=== PATIENT | female | born 1945 | race Caucasian/White ===

== ENCOUNTER → 2023-10-28 10:15 | Outpatient (BNVA) | payer MEDICARE, MEDICAID, SELFPAY | PROVIDERS: Visit Provider Clinical Nurse Specialist Psychiatric/Mental Health | DX: F41.1 Generalized anxiety disorder (principal); G47.00 Insomnia, unspecified; E03.9 Hypothyroidism, unspecified | CPT/HCPCS: 99212 ==

== ENCOUNTER 2023-10-28 10:40 | Outpatient (AMB) | payer MEDICARE, MEDICAID, SELFPAY ==
--- NOTE | 2023-10-28 10:42 | MHC.OFFVISPS ---
Intake Intake Visit Reasons: depression, Anxiety, Insomnia follow-up Senior Underwriting Assistant Required: No Medication List - Last Reconciled 10/28/23 by Tila Tamayo APRN dorzolamide-timolol 22.3-6.8 mg/mL ophthalmic (eye) levothyroxine mcg PO temazepam mg PO trazodone mg PO HPI- Psychiatric Chief Complaint: depression, Anxiety, Insomnia follow-up Intake Note: pt reports multipple stresors and worsened anxiety and insomnia. HPI Narrative: Patient reports she has multiple stressors including fears about housing. She is waiting for senior housing. She has not had as much work recently so she is struggling financially. Her [id number] has MS and the disease is progressing. Patient has been a major support to the family and spends much time with her granddaughter. Patient reports the increased uncertainty about her work and her housing is causing more anxiety worry and difficulty sleeping. She denies SI or HI we discussed coping skills including sleep hygiene. Past Psychiatric History: anxiety, sleep disruption, she is coping by , listening to classical music which she found decreases worry, especially before bedtime. No SI no HI; No reported SE from current meds. Long history of anxiety and insomnia, outpatient therapy with Pamella Jacob at [facility] for 11 years- just ended with her recently. No inpatient level of care Subjective Subjective Subjective Medication Compliance: Yes Side effects from medications: No Review of Systems Medical Review of Systems: unchanged Review of Systems Review of Systems Yes all other systems are reviewed and are negative Mental Status Exam Mental Status Exam Patient Appearance: Well Grooomed and Appropriate Patient Orientation: Person, Place, Time and Situation Level of Consciousness: Awake and Appropriate Patient Behavior: Appropriate and Anxious Mood Description: Anxious Affect Description: Appropriate Patient Cognition Impaired: No Ability to Follow Directions: Good Speech Pattern: Clear Memory Description: Intact Hallucinations: None Delusions: Not Present Thought Process: Intact Thought Content: positive for Intact Judgement: Good Judgement and Insight: insight and judgment good Assessment and Plan Assessment & Plan (1) Generalized anxiety disorder: Status: Acute Code(s): F41.1 - Generalized anxiety disorder (2) Insomnia: Status: Acute Code(s): G47.00 - Insomnia, unspecified (3) Hypothyroidism: Status: Acute Code(s): E03.9 - Hypothyroidism, unspecified Plan continue to utilize trazodone 100mg at bedtime temazepam 30mg at beditme as needed for insomnia sleep hygiene exercise socialize return in 3 months Medications: New trazodone 100 mg (2 x 50 mg) PO BEDTIME PRN 60 tabs 3RF insomnia temazepam 30 mg (2 x 15 mg) PO BEDTIME PRN 45 caps 3RF sleep Counseling and coordination of Care Pt. Self Management counseling: Exercise, Light exposure, Maintenance-social rhythm, Mindfulness, Mod caffeine/ETOH intake, Sleep hygiene and General coping skills Details-Self Mgmt counseling: reviewed strategies for sleep hygeine and stress management Medication management counseling: Effectiveness Diagnosis and Prognosis Counseling: Impact of diagnosis on life functions, Impact of family relationship and Adequacy of current interventions Details: I spent 30 minutes reviewing the record, seeing the patient and documenting in the medical record. Counseling provided to the patient/caregiver as outlined below. Addressed patient/caregiver concerns regarding current medication regime including effective adherence. Addressed patient/caregiver concerns regarding diagnosis and prognosis including accuracy of diagnosis, prognosis over time, impact of diagnosis. Addressed patient/caregiver concerns regarding impact of recent stressors. 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
== END 2023-10-28 10:46 | disposition home or self-care (01) ==
PROVIDERS: Visit Provider Clinical Nurse Specialist Psychiatric/Mental Health
DX: F41.1 Generalized anxiety disorder (principal); G47.00 Insomnia, unspecified; E03.9 Hypothyroidism, unspecified
CPT/HCPCS: 99214

== ENCOUNTER 2024-01-31 12:57 | Outpatient (AMB) | payer MEDICARE, MEDICAID, SELFPAY ==
--- NOTE | 2024-01-31 13:10 | MHC.OFFVISPS ---
Intake Intake Visit Reasons: depression Communications Technologist Required: No Allergies No Known Allergies Allergy (Verified 01/31/24 13:14) HPI- Psychiatric Chief Complaint: depression HPI Narrative: mood is good; sleep is fair; 2-3 days a week she has poor sleep despite the trazodone and temazepam; she has trouble with sleep initiation and mid waking. started meloxicam for sciatica; takes the meloxicam PRN only. felt it didn't help much. reports reaction prolia- caused skin rash; she continues to be active, walking every day; spending time with family. no SI no HI Past Psychiatric History: anxiety, sleep disruption, she is coping by , listening to classical music which she found decreases worry, especially before bedtime. No SI no HI; No reported SE from current meds. Long history of anxiety and insomnia, outpatient therapy with Pamella Jacob at [facility] for 11 years- just ended with her recently. No inpatient level of care Subjective Subjective Subjective Medication Compliance: Yes Side effects from medications: No Review of Systems Medical Review of Systems: unchanged Mental Status Exam Mental Status Exam Patient Appearance: Well Grooomed and Appropriate Patient Orientation: Person, Place, Time and Situation Level of Consciousness: Awake and Alert Patient Behavior: Appropriate and Cooperative Mood Description: Calm and Happy Affect Description: Calm and Happy Patient Cognition Impaired: No Ability to Follow Directions: Good Speech Pattern: Clear Hallucinations: None Delusions: Not Present Thought Process: Intact Thought Content: positive for Intact and positive for Goal Oriented Judgement: Fair Assessment and Plan Assessment & Plan (1) Insomnia: Status: Acute Qualifiers: Insomnia type: primary Qualified Code(s): F51.01 - Primary insomnia Code(s): G47.00 - Insomnia, unspecified (2) Generalized anxiety disorder: Status: Acute Code(s): F41.1 - Generalized anxiety disorder Plan continue temazepam continue trazodone continue sleep hygiene practices Medications: Refilled trazodone 100 mg (2 x 50 mg) PO BEDTIME PRN 60 tabs 3RF insomnia temazepam 30 mg (2 x 15 mg) PO BEDTIME PRN 45 caps 3RF sleep Counseling and coordination of Care Pt. Self Management counseling: Maintenance-social rhythm, Mod caffeine/ETOH intake and Sleep hygiene Diagnosis and Prognosis Counseling: Accuracy of diagnosis, Prognosis over time, Impact of diagnosis on life functions and Adequacy of current interventions Details: I spent 45[] minutes reviewing the record, seeing the patient and documenting in the medical record. Counseling provided to the patient/caregiver as outlined below. Addressed patient/caregiver concerns regarding current medication regime including effective adherence. Addressed patient/caregiver concerns regarding diagnosis and prognosis including accuracy of diagnosis, prognosis over time, impact of diagnosis. Addressed patient/caregiver concerns regarding impact of recent stressors. 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
== END 2024-01-31 14:27 | disposition home or self-care (01) ==
LOC: HO.HOP 12:57
PROVIDERS: PCP Student in an Organized Health Care Education/Training Program; Visit Provider Clinical Nurse Specialist Psychiatric/Mental Health
DX: F51.01 Primary insomnia (principal); F41.1 Generalized anxiety disorder
CPT/HCPCS: 90833; 99214

== ENCOUNTER → 2024-01-31 12:57 | Outpatient (BNVA) | payer MEDICARE, MEDICAID, SELFPAY | PROVIDERS: PCP Student in an Organized Health Care Education/Training Program; Visit Provider Clinical Nurse Specialist Psychiatric/Mental Health | DX: F51.01 Primary insomnia (principal); G47.00 Insomnia, unspecified; F41.1 Generalized anxiety disorder | CPT/HCPCS: 99212 ==

== ENCOUNTER 2024-05-01 13:10 | Outpatient (AMB) | payer MEDICARE, MEDICAID, SELFPAY ==
--- NOTE | 2024-05-01 13:22 | A.OFFPSYCH_ITS ---
Intake Intake Visit Reasons: Depression [employer] Team Member Required: No Allergies No Known Allergies Allergy (Verified 01/31/24 13:14) Medication List - Last Reconciled 05/01/24 by Tila Tamayo APRN dorzolamide 2% 1 drp ophthalmic (eye) BID dorzolamide-timolol 22.3-6.8 mg/mL ophthalmic (eye) levothyroxine mcg PO meloxicam mg PO temazepam 30 mg (2 x 15 mg) PO BEDTIME PRN trazodone 100 mg (2 x 50 mg) PO BEDTIME PRN HPI- Psychiatric Chief Complaint: Depression HPI Narrative: pt very anxious; sleep is terrible- sleep till 3- 430am; doesn't want to add any additional medication; she is trying to use coping strategies; she is waiting for appropriate housing that she move to; she has been on wait list for a year; she needs a place thats affordable and on one floor as she currently has to go up an down 18 stairs to use bathroom in middle of night. no sedation from medication; no dizziness. she is reading at [employer] if she can't sleep ; good social support from family Past Psychiatric History: anxiety, sleep disruption, she is coping by , listening to classical music which she found decreases worry, especially before bedtime. No SI no HI; No reported SE from current meds. Long history of anxiety and insomnia, outpatient therapy with Pamella Jacob at [facility] for 11 years- just ended with her recently. No inpatient level of care Subjective Subjective Subjective Medication Compliance: Yes Side effects from medications: No Review of Systems Medical Review of Systems: unchanged Mental Status Exam Mental Status Exam Patient Appearance: Well Grooomed and Appropriate Patient Orientation: Person, Place, Time and Situation Level of Consciousness: Awake and Appropriate Patient Behavior: Appropriate and Cooperative Mood Description: Anxious and Nervous Affect Description: Appropriate Patient Cognition Impaired: No Ability to Follow Directions: Good Speech Pattern: Clear, Appropriate and Coherent Memory Description: Intact Hallucinations: None Delusions: Not Present Thought Process: Intact and Goal Oriented Thought Content: positive for Intact and positive for Goal Oriented Judgement: Good Assessment and Plan Assessment & Plan (1) Generalized anxiety disorder: Status: Acute Code(s): F41.1 - Generalized anxiety disorder (2) Insomnia: Status: Acute Qualifiers: Insomnia type: primary Qualified Code(s): F51.01 - Primary insomnia Code(s): G47.00 - Insomnia, unspecified Plan pt continues to have mild to moderate anxiety and chronic sleep disruption; she has good coping skills; have reduced dose of temazepam last year; tolerating meds without side effects. Medications continue to be medically necessary and she is not ready for further decrease at this time Medications: Refilled temazepam 30 mg (2 x 15 mg) PO BEDTIME PRN 45 caps 3RF sleep trazodone 100 mg (2 x 50 mg) PO BEDTIME PRN 60 tabs 3RF insomnia Counseling and coordination of Care Pt. Self Management counseling: Exercise, Mindfulness, Nutrition education and improvement, Sleep hygiene and General coping skills Medication management counseling: Effectiveness, Side effects, Dosing range, Duration, Drug interaction, Adherence and Other Diagnosis and Prognosis Counseling: Accuracy of diagnosis, Prognosis over time and Adequacy of current interventions Details: I spent 45 minutes reviewing the record, seeing the patient and documenting in the medical record. Counseling provided to the patient/caregiver as outlined below. Addressed patient/caregiver concerns regarding current medication regime including effective adherence. Addressed patient/caregiver concerns regarding diagnosis and prognosis including accuracy of diagnosis, prognosis over time, impact of diagnosis. Addressed patient/caregiver concerns regarding impact of recent stressors. 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
== END 2024-05-01 13:51 | disposition home or self-care (01) ==
LOC: HO.HOP 13:10
PROVIDERS: PCP Student in an Organized Health Care Education/Training Program; Visit Provider Clinical Nurse Specialist Psychiatric/Mental Health
DX: F41.1 Generalized anxiety disorder (principal); F51.01 Primary insomnia
CPT/HCPCS: 90833; 99214

== ENCOUNTER → 2024-05-01 13:10 | Outpatient (BNVA) | payer MEDICARE, SELFPAY | PROVIDERS: PCP Student in an Organized Health Care Education/Training Program; Visit Provider Clinical Nurse Specialist Psychiatric/Mental Health | DX: F32.A Depression, unspecified (principal); F41.1 Generalized anxiety disorder; F51.01 Primary insomnia | CPT/HCPCS: 99212 ==

== ENCOUNTER 2024-07-30 13:04 | Outpatient (AMB) | payer MEDICARE, MEDICAID, SELFPAY ==
--- NOTE | 2024-07-30 13:06 | A.OFFPSYCH_ITS ---
Intake Intake Visit Reasons: Depression Vamp Liner Required: No Allergies No Known Allergies Allergy (Verified 01/31/24 13:14) Medication List - Last Reconciled 07/30/24 by Tila Tamayo APRN dorzolamide 2% 1 drp ophthalmic (eye) BID dorzolamide-timolol 22.3-6.8 mg/mL ophthalmic (eye) levothyroxine mcg PO meloxicam mg PO temazepam 15 mg PO BEDTIME PRN trazodone 100 mg (2 x 50 mg) PO BEDTIME PRN HPI- Psychiatric Chief Complaint: Depression HPI Narrative: pt reports worsening anxiety and sleep; high stress due to living situation and unable to find a new apartment; increase worry and stress with family; pt is coping well but it is effecting her sleep; she is exercising and socializing; she has supportive family. no medical changes; no SI or Hi Past Psychiatric History: anxiety, sleep disruption, she is coping by , listening to classical music which she found decreases worry, especially before bedtime. No SI no HI; No reported SE from current meds. Long history of anxiety and insomnia, outpatient therapy with Pamella Jacob at [facility] for 11 years- just ended with her recently. No inpatient level of care Subjective Subjective Subjective Medication Compliance: Yes Side effects from medications: No Review of Systems Medical Review of Systems: unchanged Mental Status Exam Mental Status Exam Patient Appearance: Well Grooomed and Appropriate Patient Orientation: Person, Place, Time and Situation Level of Consciousness: Awake and Appropriate Patient Behavior: Appropriate, Talkative, Cooperative and Good Eye Contact Mood Description: Anxious Affect Description: Anxious Patient Cognition Impaired: No Ability to Follow Directions: Good Speech Pattern: Clear and Appropriate Memory Description: Intact Hallucinations: None Delusions: Not Present Thought Process: Intact and Goal Oriented Thought Content: positive for Intact and positive for Goal Oriented Judgement: Good Assessment and Plan Assessment & Plan (1) Generalized anxiety disorder: Status: Acute Code(s): F41.1 - Generalized anxiety disorder (2) Insomnia: Status: Acute Qualifiers: Insomnia type: primary Qualified Code(s): F51.01 - Primary insomnia Code(s): G47.00 - Insomnia, unspecified Medications: Refilled temazepam 15 mg PO BEDTIME PRN 30 caps 1RF sleep trazodone 100 mg (2 x 50 mg) PO BEDTIME PRN 60 tabs 3RF insomnia Counseling and coordination of Care Pt. Self Management counseling: Mod caffeine/ETOH intake, Sleep hygiene and General coping skills Medication management counseling: Effectiveness, Side effects, Dosing range, Duration, Drug interaction and Adherence Diagnosis and Prognosis Counseling: Accuracy of diagnosis, Prognosis over time, Impact of diagnosis on life functions, Impact of family relationship, Problematic behaviors secondary to diagnosis and Adequacy of current interven tions Details: I spent 40 minutes reviewing the record, seeing the patient and documenting in the medical record. Counseling provided to the patient/caregiver as outlined below. Addressed patient/caregiver concerns regarding current medication regime including effective adherence. Addressed patient/caregiver concerns regarding diagnosis and prognosis including accuracy of diagnosis, prognosis over time, impact of diagnosis. Addressed patient/caregiver concerns regarding impact of recent stressors. 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
--- OUTSIDE RECORDS SUMMARY | 2024-08-01 15:33 | XMS_ITS ---
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 . . 2-3x/week for 3-4 weeks 05/08/2024 Active Levothyroxine Sodium 50 MCG 1 tablet in the morning on an empty stomach Orally Once a day for 30 day(s) Active Temazepam 15 MG 1 capsule at bedtime as needed Orally Once a day Active Dorzolamide HCl 2 % 1 drop into affected eye Ophthalmic Three times a day Active Calcium + D3 600 mg Active Voltaren 1 % as directed Externally 05/08/2024 Active traZODone HCl Not-Ta shira Trazamine 50 mg 1 per day Not-Taking traZODone HCl Active Prolia Not-Taking Social History Tobacco Use: Social History Observation Description Date Details (start date - stop date) Never Smoker NA - NA Tobacco Use/Smoking Question Answer Notes Are you a: nonsmoker Additional Findings: Tobacco Non-User Current no n-smoker Alcohol Screen Question Answer Notes Did you have a drink contain ing alcohol in the past year? Yes How often did you have a dri nk containing alcohol in the past year? 2 to 3 times a week (3 points) Points 3 Interpretation Positive Tobacco use other than smoking: Question Answer Notes Are you an other tobacco user? No Problems Problem Type SNOMED Code ICD Code Onset Dates Problem Status W/U Status Risk Notes Problem [id number] Arthritis of right ankle (M19.071) Active confirmed Vital Signs Height 5 ft 2 in in 05/08/2024 Weight 105 lbs 05/08/2024 BMI 19.2 kg/m2 05/08/2024 Encounters Encounter Location Date Provider Diagnosis [facility] [place] [address] [address] 05/08/2024 AnthonyDuggan Pain in right foot M79.671 ; Sprain of anterior talofibular ligament of right ankle, initial encounter S93.491A ; Arthritis of right ankle M19.071 and Ingrown nail L60.0 Assessments Encounter Date Diagnosis (ICD Code) Assessment Notes Treatment Notes Treatment Clinical Notes Section Notes 05/08/2024 Pain in right foot (ICD-10 - M79.671) 05/08/2024 Sprain of anterior talofibular ligament of right ankle, initial encounter (ICD-10 - S93.491A) 05/08/2024 Arthritis of right ankle (ICD-10 - M19.071) 05/08/2024 Ingrown nail (ICD-10 - L60.0) Plan Of Treatment Medication Medication Name Sig Start Date Stop Date Notes Physical Therapy . . . 2-3x/week for 3-4 weeks 05/08/2024 Voltaren 1 % as directed Externally 05/08/2024 Pending Test Test Name Order Date X ray : Ankle, right 3V 05/08/2024 Next Appt Details Follow Up: prn, Reason: Progress Notes * Altagracia GONZALEZeDOB:1945 (79 yo F)Acc No.[id number]:05/08/2024 Progress Note Patient:?Anna Marie Gonzalez Provider:?Anthony Aparicio DPM :1945???Age:79 Y???Sex:Female D ate:05/08/2024 Address:[address] [place] [address] [facility] Pcp:Chauncey Peters Subjective: * Chief Complaints: * ???Foot pain * HPI: ???Foot Pain:?Nature:?sharp, sudden.?Location?Outside, Rearfoot and ankle right.?Duration:?last night--prepping food in kitchen.?Onset/Cause:?unknown, denies trauma.?Course:?intermittent, worse.?Aggrevated:?any pressure, standing, walking.?Treatments:?rest, straps,wraps,pads, advil and tylenol.?Quality/Severity?10, scale 1-10 last night and currentlya? 3, scale 1-10.? * ROS:?General/Constitutional:?Nausea?denies, denies.?Vomiting?denies, denies.?Hunger Thirst?denies, denies.?Loss appetite?denies, denies.?Chills?denies, denies.?Fatigue?denies, denies.?Fever?denies, denies.?Night Sweats denies, denies.?Unexplained weight loss?denies, denies.?Unexplained weight gain?denies.?Ophthalmologic:?Blurred vision?denies.?Red eye?denies.?HEENTM:?Dentures?denies, denies.?Dizziness?denies, denies.?Glasses/contacts?admits, denies.?Retinopathy?denies, denies.?Blurred/double vision?denies, denies.?TMJ?denies, denies.?Discharge/drainage?denies, denies.?Implants?denies, denies.?Sore throat?denies.?Dental implants?denies.?Hard of hearing ?denies, denies.?Difficulty chewing/swallowing/speaking?denies, denies.?Nose bleeds?denies, denies.?Sore mouth?denies, denies.?Swollen glands?denies.?Respiratory:?On Oxygen?denies, denies.?Pneumonia/pleurisy?denies, denies.?Bronchitis?denies, denies.?Emphysema?denies, denies.?Coughing?denies, denies.?Cough blood?denies, denies.?Shortness of breath?denies, denies.?Wheezing?denies, denies.?Cardiovascular:?Pacemaker?denies, denies.?MVP?denies, denies.?WPW?denies, denies.?CHF?denies, denies.?Heart attack?denies, denies.?Septal defect?denies, denies.?Rapid beat?denies, denies.?Chest pain ?denies, denies.?Atrial Fib.?denies, denies.?Murmur/Palpitations?denies, denies.?Gastrointestinal:?Hemorrhoids?denies, denies.?Stomach/Abdominal pain?denies, denies.?Dark blood stool?denies, denies.?Irritable bowel ?denies, denies.?Constipation?denies, denies.?Diarrhea?denies, denies.?Vomiting?denies.?Hematology:?Swelling?denies, denies.?Clots?denies.?Varicose Veins?denies.?Bruising?denies, denies.?Bleeding problem?denies, denies.?Genitourinary:?Blood urine?denies, denies.?Frequent/Painfu/urination/bladder control?denies, denies.?Kidney stones?denies, denies.?Infection (UTI)?denies, denies.?Nephropathy?denies, denies.?sex trans dis (STD)?denies.?Prostate?denies.?Musculoskeletal:?Hammertoes?admits, denies.?Bunions?denies, denies.?Scoliosis/kyphosis?denies.?Back Pain?denies.?Muscle Cramps/ Resting?denies.?Muscle cramps / walking?denies, denies.?Generalized aches and pains?denies, denies.?Weakness?denies, denies.?Integ.:?Marcus?denies, denies.?Scars?denies, denies.?Corns/calluses?denies, denies.?Ingrown nails?admits, denies.?Painful nails?admits, denies.?Open Sores?denies.?Rashes?denies, denies.?Neurologic:?Difficulty sleeping?denies, denies.?Bipolar?denies.?Brain disorder?denies, denies.?Numbness?denies.?Balance trouble?denies, denies.?Confusion?denies, denies.?Fainting/blackouts?denies, denies.?Headache?denies.?Tingling?denies.?Tremors?denies, denies.? * Medical History:? * Surgical History:?right hip replacement 02/2016left hip replacement 06/2016toenail surgery 12/2018? 1955 * Hospitalization/Major Diagno stic Procedure:?No Hospitalization History. * Family History:?Mother: dece ased, diagnosed with Family history of arthritis, Other malignant neoplasm of unspecified site.?Father: , diagnosed with Unspecified heart disease.?Siblings: diagnosed with Diabetic - NIDDM.? * Social History:?Tobacco Use:?Tobacco Use/Smoking?Are you a:?nonsmoker ?Additional Findings: Tobacco Non-User?Current non-smoker ?Tobacco use other than smoking?Are you an other tobacco user??No ???Drugs/Alcohol:?Drugs?Have you used drugs other than those for medical reasons in the past 12 months??No ?Alcohol Screen?Did you have a drink containing alcohol in the past year??Yes ?How often did you have a drink containing alcohol in the past year??2 to 3 times a week (3 points) ?Points?3 ?Interpretation?Positive ???Miscellaneous:?no Caffeine. ?Children: yes, 1. ?Exercise: yes, bike riding, workouts, walking. ?Marital status: single. 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 * Medications:?TakingCalcium + D3 , Notes: 600 mgDorzolamide HCl 2 % Solution 1 drop into affected eye Ophthalmic Three times a dayLevothyroxine Sodium 50 MCG Tablet 1 tablet in the morning on an empty stomach Orally Once a dayTemazepam 15 MG Capsule 1 capsule at bedtime as needed Orally Once a daytraZODone HCl Taking Calcium + D3 , Notes: 600 mgTaking Dorzolamide HCl 2 % Solution 1 drop into affected eye Ophthalmic Three times a dayTaking Levothyroxine Sodium 50 MCG Tablet 1 tablet in the morning on an empty stomach Orally Once a dayTaking Temazepam 15 MG Capsule 1 capsule at bedtime as needed Orally Once a dayTaking traZODone HCl Not-Taking/PRNProlia traZODone HCl Trazamine , Notes: 50 mg 1 per dayMedication List reviewed and reconciled with the patientNot-Taking/PRN Prolia Not-Taking/PRN traZODone HCl Not-Taking/PRN Trazamine , Notes: 50 mg 1 per dayMedication List reviewed and reconciled with the patient * Allergies:?CephalosporinsKef denae: soumya[Allergies Verified] Objective: * Vitals:?Ht: 5 ft 2 in, Wt:10 5, BMI: 19.2, Shoe size:6.5, Wt-k.63 kg. * Examination: ???General Examination: ?GENERAL APPEARANCE:?pleasant, alert, well nourished, well developed, well hydrated, with good attention to hygene/body habitus, and in no acute distress.?ORIENTED:?person,place, and time.?Neurological: ?SENSORY:?Neurological exam is normal, pain sensation normal, vibration sensation intact, pinprick sensation is normal in the lower extremities, denies, tingling, burning, anesthesia, paresthesia, hyperesthesia, B/L, Neurological exam demonstrates pop AL right ankle and mild pop AM rt ankle.?TINEL'S COMPRESSION:?Negative tarsal tunnel, suri pedis, and medial calcaneal nerves B/L.?BABINSKI REFLEX:?absent.?Neuroma Pain: ?PALPATION:?No interspace pain noted on palpation.?Vascular: ?DP PULSES(B):?2/4, B/L.?PT PULSES(B):?2/4, B/L.?CAPILLARY FILL TIME:?3 secs. per digit, B/L.?TROPHIC CONDITION-TEXTURE/ELASTICITY/TURGOR/HAIR GROWTH(B):?normal, B/L.?TEMPERTURE GRADIENT(C):?warm to cool, proximal to distal, B/L.?PIGMENTATION:?normal, B/L.?EDEMA(C):?no edema.?TELANGECTASIA:?absent.?VARICOSITIES:?absent.?Dermatologic: ?SKIN FINDINGS:?Skin exam reveals normal texture, elasticity, and tugor. There are no masses. The interspaces are clear, B/L .?Orthopedic: ?MUSCLE STRENGTH:?5/5 all groups in a symmetrical fashion , B/L.?GAIT ABNORMALITY:?pronated, abducted, B/L.?X-Rays - IMAGING REPORT: ?Clinical Indication(s):? Evaluate Biomechanical Deformity.?Views:? 3 views of Ankle, RIGHT.?Findings:? moderate generalized decrease in bone density, asymmetrical Ankle joint space narrowing, lateral gutter, anteriorly.?Digits:? show asymmetrical joint space narrowing at the PIPJ consistent with clinical finding of hammertoe deformity, show enlarged/hypertrophied phalangeal head(s) consistent for clinical finding of hammertoe deformity.? Assessment: * Assessment: 1.?Pain in right foot - M79. 671 (Primary)?2.?Sprain of anterior talofibular ligament of right ankle, initial encounter - S93.491A?3.?Arthritis of right ankle - M19.071?4.?Ingrown nail - L60.0, Lateral nail border , TA? Plan: * Treatment: 2.?Sprain of anterior talofi bular ligament of right ankle, initial encounter?Imaging: X ray : Ankle, right 3V 3.?Arthritis of right ankle? Start Physical Therapy ., ., ., ., 2-3x/week, 3-4 weeks, Dx:, Refills ..?? * Procedure Codes:?60516 X-RAY EXAM OF RIGHT ANKLE 3V, Modifiers: 26 , RT * Preventive Medicine:? ??Counseling:?Discussion:?-14: Office or other outpatient visit for the evaluation and management of an established patient, which required a medically appropriate history and/or examination and MODERATE level of DECISION MAKING for: 1 OR MORE CHRONIC PROBLEM(S) THATS WORSENING, 2 STABLE CHRONIC PROBLEMS, A NEWLY DIAGNOSED PROBLEM WITH UNCERTAIN PROGNOSIS, AN ACUTE COMPLICATED INJURY WITH MULTIPLE TREATMENT OPTIONS, OR AN ACUTE PROBLEM WITH ACCOMPANYING SYSTEMIC SYMPTOMS, THAT POSE(S) A MODERATE RISK OF MORBIDITY. THIS CONDITION MAY ALSO INCLUDE RX DRUG MANAGEMENT, OR A DECISON FOR MINOR SURGERY. The visit on the day of the encounter encompassed interpreting the data and educating the patient as to the nature of their condition, treatment options available according to their individual PMH, meds, allergies, and overall health/living conditions, as well as any potential risks or complications that may occur from a failure to adhere to, and participate in, the recommended course of therapy. The discussion included a complete verbal, and/or written explanation of the examination results, any x-rays taken, the proposed diagnosis, and outline of the treatment plan. A schedule for future care needs was also explained. The patient verbalized an understanding of the instructions at this time and agreed to be an active participant in their treatment. 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 We discussed the usual/customary PT treatment schedule of 2-3 times per week for 4 weeks to as much as 12 weeks depending on insurance approval/coverage. We discussed various PT treatment modalities including, but not limited to, gate training, muscular stabilization, stretching, deep tissue therapeutic massage, ultrasound, TENS, iontophoresis, fluidotherapy, laser therapy, hydrotherapy, contrast ice/heat bath, and passive as well as active ROM exercises. Questions re: PT including visit amounts, rates of success, and goals were answered to the patient's satisfaction. The patient verbally confirmed the medical necessity and use of PT therapy treatment for their MSK condition.? * Follow Up:?prn * Images: * Sign off status: Completed true * Provider:?Anthony Aparicio DPM Date:? 024 Generated for Tavo rahman/Minerva/Roderick on:?08/01/2024 03:33 PM EST History and Physical Notes * HPI (History of Present Illness) Category Sub-Category Detail Notes Category Not es Foot Pain Aggrevated: any pressure, standing, walk ing Onset/Cause: unknown, denies sada red Course: intermittent, worse Duration: last night--prepping food in kitchen Nature: sharp, sudden Treatments: rest, straps,wraps,p ads, advil and tylenol Quality/Severity 10, scale 1-10 last night and currentlya 3, scale 1-10 Location Outside, Rearfoot an d ankle right Examination Category Sub-Category Detail Notes Category Not es Neuroma Pain PALPATION: No interspace pain noted on palpation Neurological SENSORY: Neurological exa m is normal, pain sensation normal, vibration sensation intact, pinprick sensation is normal in the lower extremities, denies, tingling, burning, anesthesia, paresthesia, hyperesthesia, B/L, Neurological exam demonstrates pop AL right ankle and mild pop AM rt ankle BABINSKI REFLEX: absent TINEL'S COMPRESSION: Negative tarsal makeda dioni, suri pedis, and medial calcaneal nerves B/L Dermatologic SKIN FINDINGS: Skin exam reveal s normal texture, elasticity, and tugor. There are no masses. The interspaces are clear, B/L Orthopedic GAIT ABNORMALITY: pronated, abducted, B/L MUSCLE STRENGTH: 5/5 all groups in a symmetrical fashion , B/L General Examination GENERAL APPEARANCE: pleasant , alert, well nourished, well developed, well hydrated, with good attention to hygene/body habitus, and in no acute distress ORIENTED: person,place, and ti me Vascular DP PULSES(B): 2/4, B/L PT PULSES(B): 2/4, B/L CAPILLARY FILL TIME: 3 secs. per digit, B/L TEMPERTURE GRADIENT(C): warm to cool, pr oximal to distal, B/L TROPHIC CONDITION-TEXTURE/ELASTICITY/TURGOR/HAIR GROWTH(B): normal, B/L EDEMA(C): no edema TELANGECTASIA: absent VARICOSITIES: absent PIGMENTATION: normal, B/L X-Rays - IMAGING REPORT Findings: moderate generalized decrease in bone density, asymmetrical Ankle joint space narrowing, lateral gutter, anteriorly Digits: show asymmetrical nusrat int space narrowing at the PIPJ consistent with clinical finding of hammertoe deformity, show enlarged/hypertrophied phalangeal head(s) consistent for clinical finding of hammertoe deformity Views: 3 views of Ankle, RI GHT Clinical Indication(s): Evaluate Biomech anical Deformity
--- OUTSIDE RECORDS SUMMARY | 2024-08-01 15:33 | XMS_ITS ---
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 * Medical History:? Objective: * Vitals:? Assessment: Plan: * Treatment: * Images: * The named appointment provid er may or may not be the originator of this progress note, and it is not deemed complete until electronically signed by the appointment provider. Sign off status: Pending * Provider:?Anthony Aparicio DPM Date:? 024 Generated for Antoinettei josiah/Minerva/eTransmitting on:?08/01/2024 03:33 PM EST
--- OUTSIDE RECORDS SUMMARY | 2024-08-01 15:34 | XMS_ITS ---
Continuity of Care Document (CCD) Created on: August 01, 2024 Anna Marie Gonzalez External Reference #: [id number] : 1945 Sex: Female Author Organization [facility] [address] [place] [address] Phone [phone] Care Team Providers Care Catering Service Manager Name Role Phone Demetrius Mendoza NP Care Team Information Petal Shaper Hand [phone] Problems Active Problems Provider Date Osteoporosis Carlos Oliver M.D. Onset: 0 09/15/2022 Hypothyroidism Carlos Oliver M.D. 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 03/18/2023 Iarqxn45on/ml Soln Prefill Syringe inject 60 mg under the skin every 6 months 1ml Carlos Oliver M.D. 03/16/2023 Dorzolamide HCL/Timolol Wvqfzsu44.3-6.8mg/ml Solution Put 1 Drop Into Each Eye Twice A Day Inder Suazo M.D. Trazodone [id number] Tablets take 1 tablet by mouth at bedtime Unknown [id number] Capsules Take 1 -2 Capsules AT Bedtime as Needed Unknown Vital Signs Date Vital Result Comment 03/20/2024 2:08pm BP Systolic 130 mmHg BP Diastolic 60 mmHg Heart Rate 72 /min Height 62 inches 5'2 Weight 108.00 lb BMI (Body Mass Index) 19.8 kg/m2 Results Test Acquired Date Facility Test Result H/L Range Note Creatinine 03/23/2024 [facility] Creatinine 0.79 mg/dL 0.57-1.0 0 eGFR 77 mL/min/1.7 3 >59 Laboratory test finding 03/23/2024 [facility] BUN 11 mg/dL 8-27 Albumin 4.1 g/dL 3.8-4.8 Laboratory test finding 03/23/2024 [facility] Calcium 9.2 mg/dL 8.7-10.3 Comprehensive Metabolic Panl 09/16/2023 [facility] Glucose 111 mg/dL High (70-99) BUN 9 mg/dL (8-23) Creatinine 0.8 mg/dL (0.5-1.0 ) Sodium 144 mmol/L (133-145 ) Potassium 4.0 mmol/L (3.6-5.2 ) Chloride 106 mmol/L (98-107) Bicarbonate 28 mmol/L (22-29) Anion Gap 10 (4-17) Albumin 4.2 GM/DL (3.4-4.8 ) Calcium 8.8 mg/dL (8.6-10. 5) Bilirubin,Total 0.9 mg/dL (0-1.2 ) Total Protein 6.1 GM/DL Low (6.2-8.2 ) Ag Ratio 2.2 Ast 18 U/L (0-32) Alk Phos 62 U/L (35-104) Alt 11 U/L (0-33) Estimated GFR Creatinine 82 ML/MIN/1.7 3M2 1 Lipid Panel 09/16/2023 [facility] Cholesterol, Total 222 mg/dL High (<200) Triglyceride 69 mg/dL (<150) HDL Chol 88 mg/dL (>39) LDL Cholesterol, Calculated 120 mg/dL (0-130) Non HDL Cholesterol (Calc) 134 mg/dL (<160) Urinalysis Complete 09/16/2023 [facility] [id number] Test not perform <SEE NOTE> 2 Complete Abc With Diff 09/16/2023 [facility] WBC 6.3 K/MM3 (4.0-11. 0) RBC 4.79 M/MM3 (4.20-5. 40) HGB 14.6 GM/DL (11.7-15 .5) HCT 44.7 % (35.7-45 .8) MCV 93.3 FL (80.0-10 0.0) MCH 30.5 pg (27.0-34 .0) MCHC 32.7 g/dL Low (33.0-37 .0) PLT 187 K/MM3 (150-460 ) RDW-SD 44.1 FL (<47.0) MPV 9.9 FL (9.4-12. 4) Automated NRBC 0.0 #/100WBC'S Abs. NRBC 0.0 K/MM3 Neut # 4.4 K/MM3 (1.3-7.0 ) Lymph # 1.2 K/MM3 (0.8-3.1 ) [place]# 0.5 K/MM3 (0.4-0.9 ) Eo # 0.1 K/MM3 (0.0-0.4 ) Baso # 0.0 K/MM3 (0.0-0.1 ) Abs. Imm Gran 0.1 K/MM3 Neut 69.6 % (44-76) Lymph 19.2 % (15-43) Monocyte 7.3 % (4.5-10. 5) Eo 1.9 % (0-6) Baso 0.6 % (0-2) Imm Gran 1.4 % Laboratory test finding 09/16/2023 [facility] TSH With Reflex To FT4 0.42 uIU/mL (0.4-4.2 ) 25Oh Vitamin D 32.5 NG/ML (20-50 ) Phosphorus 3.1 mg/dL (2.5-4.5 ) PTH, Intact 97 pg/mL High (15-65) Basic Metabolic Panel 03/16/2023 [facility] Glucose 85 mg/dL (70-99) BUN 12 mg/dL (8-23) Creatinine 0.7 mg/dL (0.5-1.0 ) Sodium 141 mmol/L (133-145 ) Potassium 3.7 mmol/L (3.6-5.2 ) Chloride 102 mmol/L (98-107) Bicarbonate 27 mmol/L (22-29) Anion Gap 12 (4-17) Calcium 9.3 mg/dL (8.6-10. 5) Estimated GFR Creatinine 88 ML/MIN/1.7 3M2 3 Laboratory test finding 03/16/2023 [facility] Free T4 1.25 ng/dL (0.70-1. 80) Laboratory test finding 03/16/2023 [facility] TSH With Reflex To FT4 4.67 uIU/mL High (0.4-4.2 ) Laboratory test finding 09/17/2022 [facility] TSH With Reflex To FT4 <pending> Complete Abc With Diff 09/15/2022 [facility] WBC 7.8 K/MM3 (4.0-11. 0) RBC 4.38 M/MM3 (4.20-5. 40) HGB 13.5 GM/DL (11.7-15 .5) HCT 42.6 % (35.7-45 .8) MCV 97.3 FL (80.0-10 0.0) MCH 30.8 pg (27.0-34 .0) MCHC 31.7 g/dL Low (33.0-37 .0) PLT 198 K/MM3 (150-460 ) RDW-SD 49.1 FL High (<47.0) MPV 10.5 FL (9.4-12. 4) Automated NRBC 0.0 #/100WBC'S Abs. NRBC 0.0 K/MM3 Neut # 5.3 K/MM3 (1.3-7.0 ) Lymph # 1.8 K/MM3 (0.8-3.1 ) [place]# 0.5 K/MM3 (0.4-0.9 ) Eo # 0.1 K/MM3 (0.0-0.4 ) Baso # 0.0 K/MM3 (0.0-0.1 ) Abs. Imm Gran 0.0 K/MM3 Neut 68.1 % (44-76) Lymph 23.0 % (15-43) Monocyte 6.8 % (4.5-10. 5) Eo 1.3 % (0-6) Baso 0.5 % (0-2) Imm Gran 0.3 % Laboratory test finding 09/15/2022 [facility] TSH With Reflex To FT4 6.38 uIU/mL High (0.4-4.2 ) Comprehensive Metabolic Panl 09/15/2022 [facility] Glucose 91 mg/dL (70-99) BUN 10 mg/dL (8-23) Creatinine 0.7 mg/dL (0.5-1.0 ) Sodium 143 mmol/L (133-145 ) Potassium 4.1 mmol/L (3.6-5.2 ) Chloride 103 mmol/L (98-107) Bicarbonate 30 mmol/L High (22-29) Anion Gap 10 (4-17) Albumin 4.3 GM/DL (3.4-4.8 ) Calcium 10.0 mg/dL (8.6-10. 5) Bilirubin,Total 0.9 mg/dL (0-1.2 ) Total Protein 6.0 GM/DL Low (6.2-8.2 ) Ag Ratio 2.5 Ast 17 U/L (0-32) Alk Phos 53 U/L (35-104) Alt 11 U/L (0-33) Estimated GFR Creatinine 91 ML/MIN/1.7 3M2 4 Laboratory test finding 09/15/2022 [facility] 25Oh Vitamin D 38.9 NG/ML (20-50) Free T4 1.19 ng/dL (0.70-1. 80) Laboratory test finding 03/18/2022 [facility] Calcium 8.8 mg/dL (8.6-10. 5) Creatine, Serum 0.5 5 Laboratory test finding 03/17/2022 [facility] Calcium <pending> Creatine, Serum <pending> 1 Creatinine based est imated glomerular filtration (eGFR) in adults is calculated using the National [employer] recommended 2021 CKD-EPI equation. Estimates GFR from serum creatinine, age and sex. 2 Test not performed,q uantity insufficient 3 Creatinine based est imated glomerular filtration (eGFR) in adults is calculated using the [employer] recommended 2021 CKD-EPI equation. Estimates GFR from serum creatinine, age and sex. 4 Creatinine based est imated glomerular filtration (eGFR) in adults is calculated using the [employer] recommended 2021 CKD-EPI equation. Estimates GFR from serum creatinine, age and sex. 5 Reference range: 0.1 to 1.0 Unit: mg/dL (NOTE) This test was developed and its performance characteristics determined by [employer]. It has not been cleared or approved by the Food and Drug Administration. Test performed at [address] [address] Medical Devices Description No Information Available Encounters Type Date Location Provider Dx Diagnosis Office Visit 03/20/2024 2:15p Main Office Carlos Oliver M.D. M81.0 Age-related osteoporosis w/o current pathological fracture Assessments Date Code Description Provider 03/20/2024 M81.0 Age-related oste oporosis without current pathological fracture Carlos Oliver M.D. Plan of Treatment Future Appointment(s):* 03/20/2025 1:00 pm - Carlos Oliver M.D. at Main Office 03/20/2024 - Carlos Oliver M.D.* M81.0 Age-related osteoporosis without current pathological fracture Functional Status Description No Information Available Mental Status Description No Information Available Referrals Description No Information Available
--- OUTSIDE RECORDS SUMMARY | 2024-08-01 15:34 | XMS_ITS | Patient Health Record ---
Author Organization [facility] Address [address] [place] [address] Care Team Providers Care Library Sales Consultant Name Role Phone Chauncey Peters Primary Care Provider Dominic Wilcox Unavailable [phone] Anthony Aparicio Unavailable [phone] Allergies Allergen (clinical drug ingredient) Drug/Non Drug Allergy documented on EMR Reaction Allergy Type Onset Date Status Keflex rash Drug Allergy Active Medicinal cephalosporin and acting as antibacterial agent (FN) Cephalosporins Unknown Drug Allergy Active Reason For Referral No Information Medications Medication SIG (Take, Route, Frequency, Duration) Notes Start Date End Date Status Voltaren 1 % as directed Externally 05/08/2024 Active Physical Therapy . . . 2-3x/week for 3-4 weeks 05/08/2024 Active Levothyroxine Sodium 50 MCG 1 tablet in the morning on an empty stomach Orally Once a day for 30 day(s) Active Temazepam 15 MG 1 capsule at bedtime as needed Orally Once a day Active Dorzolamide HCl 2 % 1 drop into affected eye Ophthalmic Three times a day Active traZODone HCl Not-Ta shira Trazamine 50 mg 1 per day Not-Taking traZODone HCl Active Prolia Not-Taking Calcium + D3 600 mg Active Social History Tobacco Use: Social History Observation [...] Problem Status W/U Status Risk Notes Problem [id number] Arthritis of right ankle (M19.071) Active confirmed Vital Signs Height 5 ft 2 in in 05/08/2024 Weight 105 lbs 05/08/2024 BMI 19.2 kg/m2 05/08/2024 Procedures Procedure Date Ordered Date Performed Result Body Sit e 89113 I&D ABSCESS- SIMPLE,SINGLE 12/14/2023 N/A 38019-LPN 01/03/2024 N/A 72527- Debride <25 sq cm 02/03/2024 N/A Encounters Encounter Location Date Provider Diagnosis [facility] [address] 12/14/2023 Dominic Cao Abscess of toe, right L02.611 and Ingrown nail L60.[address] [facility] [address] 01/03/2024 Dominic Kiley Ingrown nail L60.[address] [address] 02/03/2024 Dominic Robinsier Skin ulcer of toe of left foot, limited to breakdown of skin L97.[address] [address] 05/08/2024 Anthony Aparicio Pain in right foot M79.671 ; Sprain of anterior talofibular ligament of right ankle, initial encounter S93.491A ; Arthritis of right ankle M19.071 and Ingrown nail L60.[address] [address] 01/17/2024 Dominic Cao Assessments Encounter Date Diagnosis (ICD Code) Assessment Notes Treatment Notes Treatment Clinical Notes Section Notes 12/14/2023 Ingrown nail (ICD-10 - L60.0) 12/14/2023 Abscess of toe, right (ICD-10 - L02.611) Patient Educated with: WOUND CARE INSTRUCTIONS.p df (WOUND CARE INSTRUCTIONS.p df) 01/03/2024 Ingrown nail (ICD-10 - L60.0) 02/03/2024 Skin ulcer of toe of left foot, limited to breakdown of skin (ICD-10 - L97.521) Patient Educated with: WOUND CARE INSTRUCTIONS.p df (WOUND CARE INSTRUCTIONS.p df) 05/08/2024 Pain in right foot (ICD-10 - M79.671) 05/08/2024 Sprain of anterior talofibular ligament of right ankle, initial encounter (ICD-10 - S93.491A) 05/08/2024 Arthritis of right ankle (ICD-10 - M19.071) 05/08/2024 Ingrown nail (ICD-10 - L60.0) 02/03/2024 Other Plan Of Treatment Pending Test Test Name Order Date [id number] 01/03/2024 29421- Debride <25 sq cm 02/03/2024 15383 I&D ABSCESS- SIMPLE,SINGLE 024 X ray : Ankle, right 3V 05/08/2024 Insurance Providers Payer Name Payer Address Payer Phone Subscriber Number Group Number Insured Name Patient Relationship to Insured Coverage Start Date Coverage End Date [facility] [id number] [address] [place] [address] [id number] Anna Marie Gonzalez Self - patient is the insured Medical (General) History Medical History History ICD Code osteoarthritis Broken bones Cataracts Glaucoma Headaches/Migraines Osteoporosis thyroid Measles Chicken pox Joint implants/screws Surgical History Surgery Date(Month/Year) right hip replacement 02/2016 left hip replacement 06/2016 toenail surgery 12/2018 ? 1954
--- OUTSIDE RECORDS SUMMARY | 2024-08-01 15:34 | XMS_ITS ---
Author Organization [facility] [place] Address [address] [facility] [place] [address] Care Team Providers Care Tenoner Operator Name Role Phone Chauncey Peters Primary Care Provider Dominic Wilcox Unavailable [phone] Allergies Allergen (clinical drug ingredient) Drug/Non Drug Allergy documented on EMR Reaction Allergy Type Onset Date Status Keflex rash Drug Allergy Active Medicinal cephalosporin and acting as antibacterial agent (FN) Cephalosporins Unknown Drug Allergy Active REASON FOR VISIT Open sore - Toe Medications Medication SIG (Take, Route, Frequency, Duration) Notes Start Date End Date Status Temazepam 15 MG 1 capsule at bedtime as needed Orally Once a day Active Prolia Not-Taking traZODone HCl Active Trazamine 50 mg 1 per day Not-Taking traZODone HCl Not-Ta shira Dorzolamide HCl 2 % 1 drop into affected eye Ophthalmic Three times a day Active Calcium + D3 600 mg Active Levothyroxine Sodium 50 MCG 1 tablet in the morning on an empty stomach Orally Once a day for 30 day(s) Active Social History Tobacco Use: Social History [...] Are you an other tobacco user? No Vital Signs Height 5 ft 2 in in 02/03/2024 Weight 108 lbs 02/03/2024 BMI 19.75 kg/m2 02/03/2024 Procedures Procedure Date Ordered Date Performed Result Body Sit e 48706- Debride <25 sq cm 02/03/2024 N/A Encounters Encounter Location Date Provider Diagnosis [facility] [address] [place] [address] 02/03/2024 Dominic Cao Skin ulcer of toe of left foot, limited to breakdown of skin L97.521 Assessments Encounter Date Diagnosis (ICD Code) Assessment Notes Treatment Notes Treatment Clinical Notes Section Notes 02/03/2024 Skin ulcer of toe of left foot, limited to breakdown of skin (ICD-10 - L97.521) Patient Educated with: WOUND CARE INSTRUCTIONS.p df (WOUND CARE INSTRUCTIONS.p df) 02/03/2024 Other Plan Of Treatment Treatment Notes Assessment Notes Skin ulcer of toe of left fo ot, limited to breakdown of skin Patient Educated with: WOUND CARE INSTRUCTIONS.pdf (WOUND CARE INSTRUCTIONS.pdf) Pending Test Test Name Order Date 93211- Debride <25 sq cm 02/03/2024 Next Appt Details Follow Up: prn, Reason: Procedure Notes * Category Sub-Category Detail Notes Debride skin< 25 sq cm Open wound Physician of record performed open wound selective debridement of first 25 sq cm or less, of devitilized necrotic/nonviable soft tissue, fibrin, and exudate extending from the epidermis through the dermis, utilizing sharp dissection with sterile 15 blade, and/or tissue nippers. Sterile antibiotic dressing applied, ANESTHESIA- was accomplished TOPICALLY with Lidocaine Hydrochloride Jelly 2 percent. Hemostasis was achieved through direct pressure. Post debridement measurements: 5mm x 4mm x 2mm. Character of the wound post debridement is stable (33658) Progress Notes * Altagracia GONZALEZeDOB:1945 (79 yo F)Acc No.[id number]:02/03/2024 Progress Note Patient:Diamond Savageerie Provider:Phillip Cao DPM :1945???Age:79 Y???Sex:Female D ate:02/03/2024 Address:[address] [place], [place] [id number] Pcp:Chauncey Peters Subjective: * Chief Complaints: * ???Open sore - Toe * HPI: ???Skin problems:?Nature:?Open sore.?Treatments:?Topical abx, soaks.? * ROS:?General/Constitutional:?Nausea?denies.?Vomiting?denies.?Hunger Thirst?denies.?Loss appetite?denies.?Chills?denies.?Fatigue?denies.?Fever?denies.?Night Sweats?denies.?Unexplained weight loss?denies.?Unexplained weight gain?denies.?HEENTM:?Dentures?denies.?Dizziness?denies.?Glasses/contacts?admits.?Retinopathy?de nies.?Blurred/double vision?denies.?TMJ?denies.?Discharge/drainage?denies.?Implants?denies.?Sore throat?denies.?Dental implants?denies.?Hard of hearing ?denies.?Difficulty chewing/swallowing/speaking?denies.?Nose bleeds?denies.?Sore mouth?denies.?Respiratory:?On Oxygen?denies.?Pneumonia/pleurisy?denies.?Bronchitis?denies.?Emphysema?denies.?C oughing?denies.?Cough blood?denies.?Shortness of breath?denies.?Wheezing?denies.?Cardiovascular:?Pacemaker?denies.?MVP?denies.?WPW?denies.?CHF?denies.?Heart attack?denies.?Septal defect?denies.?Rapid beat?denies.?Chest pain ?denies.?Atrial Fib.?denies.?Murmur/Palpitations?denies.?Gastrointestinal:?Hemorrhoids?denies.?Stomach/Abdominal pain?denies.?Dark blood stool?denies.?Irritable bowel ?denies.?Constipation?denies.?Diarrhea?denies.?Hematology:?Swelling?denies.?Clots?denies.?Varicose Veins?denies.?Bruising?denies.?Bleeding problem?denies.?Genitourinary:?Blood urine?denies.?Frequent/Painfu/urination/bladder control?denies.?Kidney stones?denies.?Infection (UTI)?denies.?Nephropathy?denies.?sex trans dis (STD)?denies.?Prostate?denies.?Musculoskeletal:?Hammertoes?admits.?Bunions?denies.?Back Pain?denies.?Muscle Cramps/ Resting?denies.?Muscle cramps / walking?denies.?Generalized aches and pains?denies.?Weakness?denies.?Integ.:?Marcus?denies.?Scars?denies.?Corns/calluses?denies.?Ingrown nails?admits.?Painful nails?admits.?Open Sores?denies.?Rashes?denies.?Neurologic:?Difficulty sleeping?denies.?Brain disorder?denies.?Numbness?denies.?Balance trouble?denies.?Confusion?denies.?Fainting/blackouts?denies.?Tingling?denies.?Tr emors?denies.? * Medical History:? * Surgical History:?right hip replacement 02/2016left hip replacement 06/2016toenail surgery 12/2018? 1953 * Hospitalization/Major Diagno stic Procedure:?Denies Past Hospitalization * Family History:?Mother: dece ased, diagnosed with [...] riding, workouts, walking. ?Marital status: single. 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 * Medications:?TakingCalcium + D3 , Notes: 600 [...] * Vitals:?Ht: 5 ft 2 in, Wt:10 8, BMI:19.75, Shoe size:6.5. * Examination: ???Dermatologic: ?ULCER:? LOCATION, Dorsal, TA, SIZE, 5mm X 3mm X 1-2mm, BASE, granular to epithelialized, RIM, hyperkeratotic, UNDERMINING, absent, TRACKING, Partial to, Full thickness breakdown of skin, DRAINAGE, serosanguineous, mild, NECROTIC TISSUE, loosely-adherent, yellow slough, MALODOR, absent, CALOR, absent, ERYTHEMA, absent, PAIN ON PALPATION, mild.? Assessment: * Assessment: 1.?Skin ulcer of toe of left foot, limited to breakdown of skin - L97.521? Plan: * Treatment: * Procedures:?Debride skin< 25 sq cm:?Open wound?Physician of record performed open wound selective debridement of first 25 sq cm or less, of devitilized necrotic/nonviable soft tissue, fibrin, and exudate extending from the epidermis through the dermis, utilizing sharp dissection with sterile 15 blade, and/or tissue nippers. Sterile antibiotic dressing applied, ANESTHESIA- was accomplished TOPICALLY with Lidocaine Hydrochloride Jelly 2 percent. Hemostasis was achieved through direct pressure. Post debridement measurements: 5mm x 4mm x 2mm. Character of the wound post debridement is stable (04250).? * Procedure Codes:?01655 ACTIV E WOUND CARE/20 CM OR < * Preventive Medicine:? ??Counseling:?Ulcer:?A detailed plan of care was reviewed with the patient. We emphasized the fact that the patient takes on an active participating role in the treatment process and emphasized to them that they are an included, valued, and important member of the wound healing team in order to reach an expedient successful outcome. The patient agreed to follow their medically recommended diet while increasing their protein intake if safely able to do so, maintain proper bodily hydaration, abide by weight-bearing restrictions at all times, quit all current smoking habits if any, and diligently follow any/all dressing change instructions. It was clearly made known to the patient that if they fail to do their part, they will likely extend their course of treatment as well as possibly increase their risk of adverse events including amputation. The patient was instructed on importance of proper wound care consisting of pressure reduction, and proper maintainance of a moist wound environment. The patient is to cleanse the wound with warm soapy water/peroxide/saline, or betadine BID based on product availability. The patient is to apply ( Neosporin, Polysporin, or Triple, ) Antibiotic to the wound and cover with a DSD as directed. The patient was instructed to change dressings according to orders, or PRN saturation, leaks. The patient was instructed to monitor and report any signs or symptoms of infection or any untoward reactions. Precautions Taken: Offloading/Pressure reduction via rest/ limited activity to essential to daily life only, shoe modification, accommodative padding, sharp debridement, and take/apply medication as directed. THE GOALS of wound debridement to remove devitilized tissue, decrease risk for infection, promote wound healing and prevent further complication were discussed/reviewed. Debridement frequency as indicated, Given recent successful results to treatment, The patient is to cont the local wound care as directed till completely healed.? * Follow Up:?prn * Images: * Sign off status: Completed true * Provider:?Dominic Cao DPM Date:?2023 Generated for Tavo rahman/Minerva/Roderick on:?08/01/2024 03:33 PM EST History and Physical Notes * HPI (History of Present Illness) Category Sub-Category Detail Notes Category Not es Skin problems Nature: Open sore Treatments: Topical abx, soaks Examination Category Sub-Category Detail Notes Category Not es Dermatologic ULCER: LOCATION, Dorsal , TA, SIZE, 5mm X 3mm X 1-2mm, BASE, granular to epithelialized, RIM, hyperkeratotic, UNDERMINING, absent, TRACKING, Partial to, Full thickness breakdown of skin, DRAINAGE, serosanguineous, mild, NECROTIC TISSUE, loosely-adherent, yellow slough, MALODOR, absent, CALOR, absent, ERYTHEMA, absent, PAIN ON PALPATION, mild
== END 2024-07-30 13:39 | disposition home or self-care (01) ==
LOC: HO.HOP 13:04
PROVIDERS: PCP Internal Medicine; Visit Provider Clinical Nurse Specialist Psychiatric/Mental Health
DX: F41.1 Generalized anxiety disorder (principal); F51.01 Primary insomnia
CPT/HCPCS: 99214

== ENCOUNTER → 2024-07-30 13:04 | Outpatient (BNVA) | payer MEDICARE, MEDICAID, SELFPAY | PROVIDERS: PCP Internal Medicine; Visit Provider Clinical Nurse Specialist Psychiatric/Mental Health | DX: F41.1 Generalized anxiety disorder (principal); F51.01 Primary insomnia | CPT/HCPCS: 99212 ==

== ENCOUNTER → 2024-10-17 14:00 | Outpatient (REF) | payer MEDICARE, MEDICAID, SELFPAY ==
--- NOTE | 2024-10-17 14:05 | CA_ITS ---
Transthoracic Echocardiogram Patient (Last, First, Middle): Anna Marie Gonzalez J Gender: Female Date of : 1945 Age: 79 Procedure Date: 10/17/2024 Procedure Type: Transthoracic Echocardiogram Location: OP Height: 157.48 cm Weight: 48.08 kg BSA: 1.46 m2 Heart Rate: bpm BP: 148 / 70 mmHg Door Worker: TO Referring MD: Christopher Azevedo MD Symptoms: R94.31, Z00.01 M54.42 Study Quality: Adequate Conclusions: - The left ventricular systolic function is normal. The calculated ejection fraction is 56% by biplane method. Findings Left Ventricle Normal left ventricular cavity size. The left ventricular systolic function is normal. The calculated ejection fraction is 56% by biplane method. There is no evidence of regional wall motion abnormalities. Evidence suggests grade II (moderate) diastolic dysfunction. Focal hypertrophy of the basal septum. Right Ventricle Normal right ventricular cavity size and systolic function. Atria The left atrium is mildly dilated. The right atrium is normal in size. Aortic Valve There is a normal trileaflet aortic valve. There is mild calcification of the aortic valve. There is no aortic valve stenosis. There is mild aortic valve regurgitation. 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 There is moderate posterior mitral leaflet prolapse. The mitral regurgitation jet is directed anteriorly. There is no mitral valve stenosis. Highly eccentric anteriorly directed mitral regurgitation. Difficult to determine severity, possibly moderate regurgitation. Underestimation possible. Pulmonic Valve There is trace pulmonic valve regurgitation. Tricuspid Valve There is trace tricuspid valve regurgitation. There is no evidence of pulmonary hypertension. Great Vessels The asc aorta is normal in size. Venous The inferior vena cava is normal in size and collapses less than 50% with inspiration. Pericardium/Pleural There is a small loculated pericardial effusion overlying the left ventricle. Prior Study Comparison No prior study available for comparison. Measurements 2D Linear Measurements IVSd: 1.60 0.6-0.9/0.6-1.0 cm LVIDd: 4.08 3.9-5.3/4.2-5.9 cm LVIDd Index: 2.79 2.4-3.2/2.2-3.1 cm/m2 LVIDs: 2.55 2.0-3.6 cm LVPWd: 0.87 0.7-1.1 cm LA Diam: 3.70 2.7-3.8/3.0-4.0 cm LAIDs Index: 2.53 1.5-2.3 cm/m2 LV Mass: 221.75 67-162/88-224 g LV Mass Index: 151.88 43-95/49-115 g/m2 LVOT Diam: 2.00 3.0+(-)1.3 cm 2D Systolic Function EF 4C: 51.90 >55% EF 2C: 61.00 >55% EF BiP: 56.30 >55% Mitral Valve MV Pk E: 0.91 MV PK A: 0.73 MV Decel Time: 177.00 E/A: 1.20 E'Lateral: 3.26 E'Medial: 3.26 E/E' Med: 28.00 E/E' Lat: 28.00 PHT: 52.00 MVA PHT: 4.23 Decel Gage: 5.16 Aortic Valve AoV Pk William: 1.53 AoV Mn William: 1.00 AoV VTI: 0.27 AoV Pk Grad: 9.00 Aov Mn Grad: 5.00 LESLY Cont.VTI: 2.24 LVOT LVOT Pk William: 1.27 LVOT Mn William: 0.85 LVOT VTI: 0.19 LVOT Pk Grad: 6.00 LVOT Mn Grad: 3.00 LVOT Diam: 2.00 LVOT Area: 3.14 Diastolic Function MV Pk E: 0.91 MV Pk A: 0.73 E/A: 1.20 E'Medial: 3.26 E/E' Med: 28.00 E' Laterial: 3.26 E/E' Lat: 28.00 Right Ventricle TAPSE (mm): 23.60 TVS' William: 16.20 Tricuspid Valve TR Pk William: 1.98 TR Pk Grad: 16.00 RA Press: 15.00 RVSP: 31.00 Great Vessels Aorta Sinus of Valsalva: 2.65 2.0-3.5 cm Ao Asc: 3.50 2.1-3.4 cm Updated in Other Vendor System with Status of Final Edward Savage MD electronically signed on 10/17/2024 3:50:30 PM with status of Final
--- OUTSIDE RECORDS SUMMARY | 2024-10-17 17:14 | XMS_ITS ---
Author Organization [facility] melany Fenton Address [address] [place] [address] Care Team Providers Care Internal Controls Manager Name Role Phone Chauncey Peters Primary Care Provider Dominic Wilcox Unavailable [phone] Allergies Allergen (clinical drug ingredient) Drug/Non Drug [...] Ordered Date Performed Result Body Sit e 51806- Debride <25 sq cm 02/03/2024 N/A Encounters Encounter Location Date Provider Diagnosis [facility] [place] [address] [place] [address] 02/03/2024 Dominic Cao Skin ulcer of toe [...] INSTRUCTIONS.pdf) Pending Test Test Name Order Date 85282- Debride <25 sq cm 02/03/2024 Next Appt [...] of the wound post debridement is stable (99860) Progress Notes * Altagracia GONZALEZeDOB:1945 (79 yo F)Acc No.[id number]:02/03/2024 Progress Note Patient:Diamond Savageerie Provider:Phillip Cao DPM :1945???Age:79 Y???Sex:Female D ate:02/03/2024 Address:[address] [place], [place] [id number] Pcp:Chauncey Peters Subjective: * Chief Complaints: * [...] riding, workouts, walking. ?Marital status: single. 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 * Medications:?TakingCalcium + D3 , Notes: 600 [...] of the wound post debridement is stable (87970).? * Procedure Codes:?28502 ACTIV E WOUND CARE/20 CM OR < [...] Cao DPM Date:?2023 Generated for Tavo rahman/Minerva/Roderick on:?10/17/2024 05:14 PM EST History and Physical Notes * [...]
--- OUTSIDE RECORDS SUMMARY | 2024-10-17 17:14 | XMS_ITS ---
Author Organization [facility] Address [address] [place] [address] Care Team Providers Care Air Antisubmarine Officer Name Role Phone Chauncey Peters Primary Care Provider Dominic Wilcox Unavailable [phone] Anthony Aparicio [phone] Encounters Encounter Location Date Provider Diagnosis [address] [address] 05/09/2024 Anthony Aparicio Plan Of Treatment No Information Progress Notes * CARLOSAltagraciaeDOB:1945 (79 yo F)Acc No.[id number]:05/09/2024 Progress Note Patient:?Anna Marie GONZALEZ Provider:?Anthony Aparicio DPM :1945???Age:79 Y???Sex:Female D ate:05/09/2024 Address:[address] [place], [place] [id number] Pcp:Chaunecy Peters Subjective: * Chief Complaints: * ??? * Medical History:? Objective: * Vitals:? Assessment: Plan: * Treatment: * Images: * The named appointment provid er may or may not be the originator of this progress note, and it is not deemed complete until electronically signed by the appointment provider. Sign off status: Pending * Provider:?Anthony Aparicio DPM Date:? 024 Generated for Tavo rahman/Minerva/eTransmitting on:?10/17/2024 05:14 PM EST
--- OUTSIDE RECORDS SUMMARY | 2024-10-17 17:15 | XMS_ITS | Patient Health Record ---
Author Organization [facility] Address [address] [place] [address] Care Team Providers Care Movie Shot Camera Operator Name Role Phone Chauncey Peters Primary Care Provider Dominic Wilcox Unavailable [phone] Anthony Aparicio Unavailable [phone] Allergies Allergen (clinical drug ingredient) Drug/Non Drug [...] Problem Status W/U Status Risk Notes Problem [id number] Arthritis of right ankle (M19.071) Active confirmed Vital Signs Height 5 ft 2 in in 05/08/2024 Weight 105 lbs 05/08/2024 BMI 19.2 kg/m2 05/08/2024 Procedures Procedure Date Ordered Date Performed Result Body Sit e 55557 I&D ABSCESS- SIMPLE,SINGLE 12/14/2023 N/A 99004- Debride <25 sq cm 02/03/2024 N/A 41202-TBC 01/03/2024 N/A Encounters Encounter Location Date Provider Diagnosis [facility] [address] 12/14/2023 Dominic Cao Abscess of toe, right L02.611 and Ingrown nail L60.0 [facility] [address] 01/03/2024 Dominic Kiley Ingrown nail L60.[address] [address] 02/03/2024 Dominic Robinsier Skin ulcer of toe of left foot, limited to breakdown of skin L97.[address] [address] 05/08/2024 Anthony Aparicio Pain in right foot M79.671 ; Sprain of anterior talofibular ligament of right ankle, initial encounter S93.491A ; Arthritis of right ankle M19.071 and Ingrown nail L60.[address] [address] 01/17/2024 Dominic Cao Assessments Encounter Date Diagnosis [...] Treatment Pending Test Test Name Order Date 71334-YUV 01/03/2024 34228- Debride <25 sq cm 02/03/2024 43482 I&D ABSCESS- SIMPLE,SINGLE 024 X ray : Ankle, right 3V 05/08/2024 Insurance Providers Payer Name Payer Address Payer Phone Subscriber Number Group Number Insured Name Patient Relationship to Insured Coverage Start Date Coverage End Date [facility] [id number] [address] [place] [address] [id number] Anna Marie Gonzalez Self - patient is the insured Medical (General) History Medical History History ICD Code osteoarthritis Broken bones Cataracts Glaucoma Headaches/Migraines Osteoporosis thyroid Measles Chicken pox Joint implants/screws Surgical History Surgery Date(Month/Year) right hip replacement 02/2016 left hip replacement 06/2016 toenail surgery 12/2018 ? 1954
--- OUTSIDE RECORDS SUMMARY | 2024-10-17 17:15 | XMS_ITS | Continuity of Care Document ---
Author Organization [facility] [address] [place] [address] Phone [phone] Care Team Providers Care Batter Mixer Name Role Phone Demetrius Mendoza NP Care Team Information Fur Weigher [phone] Problems Active Problems Provider Date Osteoporosis Carlos [...] Qnty Indications Order ing Provider Date Levothyroxine Bduqol52axr Tablets Take 1 Tablet By Mouth Every Day In The Morning 90tabs Carlos Oliver M.D. 03/18/2023 Rpoild55xw/ml Soln Prefill Syringe inject 60 mg under the skin every 6 months 1ml Carlos Oliver M.D. 03/16/2023 Dorzolamide HCL/Timolol Dpdjaou70.3-6.8mg/ml Solution Put 1 Drop Into Each Eye Twice A Day Inder Suazo M.D. Trazodone NZR98ge Tablets take 1 tablet by mouth at bedtime Unknown [id number] Capsules Take 1 -2 Capsules AT Bedtime [...] 9.2 mg/dL 8.7-10.3 Comprehensive Metabolic Panl 09/16/2023 [facility] Glucose 111 mg/dL High (70-99) [...] 82 ML/MIN/1.7 3M2 1 Lipid Panel 09/16/2023 [facility] Cholesterol, Total 222 mg/dL High (<200) Triglyceride 69 mg/dL (<150) HDL Chol 88 mg/dL (>39) LDL Cholesterol, Calculated 120 mg/dL (0-130) Non HDL Cholesterol (Calc) 134 mg/dL (<160) Urinalysis Complete 09/16/2023 [facility] [address] Test not perform <SEE NOTE> 2 Complete Abc With Diff 09/16/2023 [facility] WBC 6.3 K/MM3 (4.0-11. 0) [...] ) Lymph # 1.2 K/MM3 (0.8-3.1 ) Travis# 0.5 K/MM3 (0.4-0.9 ) Eo # 0.1 K/MM3 (0.0-0.4 ) Baso # 0.0 K/MM3 (0.0-0.1 ) Abs. Imm Gran 0.1 K/MM3 Neut 69.6 % (44-76) Lymph 19.2 % (15-43) Monocyte 7.3 % (4.5-10. 5) Eo 1.9 % (0-6) Baso 0.6 % (0-2) Imm Gran 1.4 % Laboratory test finding 09/16/2023 [facility] TSH With Reflex To FT4 0.42 uIU/mL (0.4-4.2 ) 25Oh Vitamin D 32.5 NG/ML (20-50 ) Phosphorus 3.1 mg/dL (2.5-4.5 ) PTH, Intact 97 pg/mL High (15-65) Basic Metabolic Panel 03/16/2023 [facility] Glucose 85 mg/dL (70-99) BUN 12 mg/dL (8-23) Creatinine 0.7 mg/dL (0.5-1.0 ) Sodium 141 mmol/L (133-145 ) Potassium 3.7 mmol/L (3.6-5.2 ) Chloride 102 mmol/L (98-107) Bicarbonate 27 mmol/L (22-29) Anion Gap 12 (4-17) Calcium 9.3 mg/dL (8.6-10. 5) Estimated GFR Creatinine 88 ML/MIN/1.7 3M2 3 Laboratory test finding 03/16/2023 [facility] Free T4 1.25 ng/dL (0.70-1. 80) Laboratory test finding 03/16/2023 [facility] TSH With Reflex To FT4 4.67 uIU/mL High (0.4-4.2 ) Laboratory test finding 09/17/2022 [facility] TSH With Reflex To FT4 <pending> Complete Abc With Diff 09/15/2022 [facility] WBC 7.8 K/MM3 (4.0-11. 0) [...] ) Lymph # 1.8 K/MM3 (0.8-3.1 ) Travis# 0.5 K/MM3 (0.4-0.9 ) Eo # 0.1 K/MM3 (0.0-0.4 ) Baso # 0.0 K/MM3 (0.0-0.1 ) Abs. Imm Gran 0.0 K/MM3 Neut 68.1 % (44-76) Lymph 23.0 % (15-43) Monocyte 6.8 % (4.5-10. 5) Eo 1.3 % (0-6) Baso 0.5 % (0-2) Imm Gran 0.3 % Laboratory test finding 09/15/2022 [facility] TSH With Reflex To FT4 6.38 uIU/mL High (0.4-4.2 ) Comprehensive Metabolic Panl 09/15/2022 [facility] Glucose 91 mg/dL (70-99) BUN [...] ML/MIN/1.7 3M2 4 Laboratory test finding 09/15/2022 [facility] 25Oh Vitamin D 38.9 NG/ML (20-50) Free T4 1.19 ng/dL (0.70-1. 80) Laboratory test finding 03/18/2022 [facility] Calcium 8.8 mg/dL (8.6-10. 5) Creatine, Serum 0.5 5 Laboratory test finding 03/17/2022 [facility] Calcium <pending> Creatine, Serum <pending> [...] developed and its performance characteristics determined by [facility] It has not been cleared or approved by the Food and Drug Administration. Test performed at [address] [address] Medical Devices Description No Information Available Encounters [...]
== END ==
LOC: HO.CARD 14:00
PROVIDERS: PCP Internal Medicine; Visit Provider Internal Medicine
DX: I35.0 Nonrheumatic aortic (valve) stenosis (principal); R94.31 Abnormal electrocardiogram [ECG] [EKG]
CPT/HCPCS: 93306

== ENCOUNTER → 2024-10-17 14:05 | Outpatient (BNV) | payer MEDICARE, MEDICAID, SELFPAY | PROVIDERS: PCP Internal Medicine; Visit Provider Internal Medicine | DX: I42.2 Other hypertrophic cardiomyopathy (principal); I51.89 Other ill-defined heart diseases; I34.1 Nonrheumatic mitral (valve) prolapse; I34.0 Nonrheumatic mitral (valve) insufficiency | CPT/HCPCS: 93306 ==

== ENCOUNTER 2024-10-29 13:04 | Outpatient (AMB) | payer MEDICARE, MEDICAID, SELFPAY ==
--- NOTE | 2024-10-29 13:13 | A.OFFPSYCH_ITS ---
Intake Intake Visit Reasons: depression Insulation Batting Machine Operator Required: No Allergies No Known Allergies Allergy (Verified 01/31/24 13:14) Medication List - Last Reconciled 10/29/24 by Tila Tamayo APRN dorzolamide 2% 1 drp ophthalmic (eye) BID dorzolamide-timolol 22.3-6.8 mg/mL ophthalmic (eye) levothyroxine mcg PO meloxicam mg PO temazepam 15 mg PO BEDTIME PRN trazodone 100 mg (2 x 50 mg) PO BEDTIME PRN HPI- Psychiatric Chief Complaint: depression HPI Narrative: Pt stable; mood fair- good. sleep is variable; approximately 2 times a week she gets less than 7 hours with waking in middle of the night; approximately 2 times a month she sleeps even less. most nights with the medications she can sleep 8 hours and feels rested. she is still waiting for housing; she is anxious about it at times as she is under significant financial stress. she is socializing and spends time with family. she enjoys her granddaughter; no new medical issues; no SI no HI; no psychosis.no saadia; no side effects from medications. Past Psychiatric History: anxiety, sleep disruption, she is coping by , listening to classical music which she found decreases worry, especially before bedtime. No SI no HI; No reported SE from current meds. Long history of anxiety and insomnia, outpatient therapy with Pamella Jacob at [facility] for 11 years- just ended with her recently. No inpatient level of care Subjective Subjective Subjective Medication Compliance: Yes Side effects from medications: No Review of Systems Medical Review of Systems: unchanged Mental Status Exam Mental Status Exam Patient Appearance: Well Grooomed Patient Orientation: Person, Place, Time and Situation Level of Consciousness: Awake and Appropriate Patient Behavior: Appropriate and Good Eye Contact Mood Description: Cheerful and Anxious Affect Description: Cheerful and Anxious Patient Cognition Impaired: No Ability to Follow Directions: Good Speech Pattern: Clear and Appropriate Memory Description: Intact Hallucinations: None Delusions: Not Present Thought Process: Intact and Goal Oriented Thought Content: positive for Intact and positive for Goal Oriented Judgement: Good Assessment and Plan Assessment & Plan (1) Generalized anxiety disorder: Status: Acute Code(s): F41.1 - Generalized anxiety disorder (2) Insomnia: Status: Acute Qualifiers: Insomnia type: primary Qualified Code(s): F51.01 - Primary insomnia Code(s): G47.00 - Insomnia, unspecified Plan continue medications return in 3 months Medications: Refilled temazepam 15 mg PO BEDTIME PRN 30 caps 5RF sleep trazodone 100 mg (2 x 50 mg) PO BEDTIME PRN 60 tabs 5RF insomnia Counseling and coordination of Care Pt. Self Management counseling: Maintenance-social rhythm, Mod caffeine/ETOH intake, Nutrition education and improvement, Sleep hygiene and General coping skills Medication management counseling: Effectiveness, Side effects, Dosing range, Duration, Drug interaction and Adherence Diagnosis and Prognosis Counseling: Accuracy of diagnosis, Prognosis over time, Impact of diagnosis on life functions and Adequacy of current interventions Details: I spent 40 minutes reviewing the record, seeing the patient and documenting in the medical record. Counseling provided to the patient/caregiver as outlined below. Addressed patient/caregiver concerns regarding current medication regime including effective adherence. Addressed patient/caregiver concerns regarding diagnosis and prognosis including accuracy of diagnosis, prognosis over time, impact of diagnosis. Addressed patient/caregiver concerns regarding impact of recent stressors. 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
--- OUTSIDE RECORDS SUMMARY | 2024-10-29 14:40 | XMS_ITS | Data Portability ---
Author Organization [place] - [facility] Address [address] [place] [address] Assessment Encounter Date Assessment Date Assessment LastModified by Organization Details LastModified Time 11/04/2021 11/04/2021 Overview/History : 76 yo with a PMH of hypothyroidism, insomnia, osteoporosis, OA, and glaucoma reports that she got up to use bathroom at 530a this morning while very drowsy slipped and struck right posterior ribs on a chair. Pain increases with laying down, sitting is the best position for pain. Taking Tylenol that has been helpful. Exam: VSS General Appearance: non-toxic, well appearing, in no acute distress Head: normocephalic, atraumatic Eyes: PERRLA, EOMI, no discharge, no periorbital swelling or erythema. Mouth and Throat: moist mucous membranes, no hoarseness. Neck: FROM, no midline spinal tenderness Pulmonary: normal effort, no respiratory distress, lungs sound clear to auscultation bilaterally Cardiovascular: RRR, normal S1, normal S2, no murmurs, no rubs, no gallops, no peripheral edema Gastrointestinal : no abdominal distension, normal bowels sounds, no tenderness to palpation, no guarding, no rebound tenderness Musculoskeletal: Spine-Thoracic: no scoliosis, no kyphosis, no lordosis, no deformity, no midline spinal tenderness, no step off, posterior R posterior rib pain with palpation Neurologic: alert and oriented , memory normal , CN III-XII intact, strength is normal and equal bilaterally, deep tendon reflexes normal and equal bilaterally Psychologic: normal mood, normal affect, normal insight, normal cognition, normal recent memory, normal remote memory Skin: : no rash, no lesions, no swelling, no warmth DDx considered, but not limited to: rib fracture, rib contusion, hemothorax This patient presents post mechanical fall onto striking posterior ribs on a chair when ambulating to the bathroom earlier this AM. There is no bruising or crepitus on PE but the there is tenderness on palpation. She has a history of osteoprosis and at increased risk for fracture. She is otherwise stable. Will obtain an x-ray to evaluate for fracture, try topical pain relief in addition to continuing Acetaminophen and have patient f/u with PCP Work up/Results: X-ray R ribs- r/o fracture -pending Plan/Discussion: Advised patient of new Rx for lidocaine 5%. Recommended deep breathing exercise, bracing for comfort. Advised patient to use Acetaminophen 500 to 875 mg every 4 hours for pain. Follow up with PCP in 2-3 days Advised patient if new or worsening symptoms occur contact for evaluation or be evaluated in the ER. Proper Personal Protective Equipment (PPE), including gloves, eye protection and masks were donned and doffed appropriately and all equipment cleaned using approved technique with germicidal disposable wipes prior to and after care of this patient according to [facility] infection prevention protocols. Time On Scene with Patient: 00:38:47 [email or web address] Not available 11/09/2021 08:31:24 Plan of Treatment Reminders Order Date Submit Date Provider Last Modified By Organization Details Last Modified Time Details Appointments None recorded. Lab None recorded. Referral None recorded. Procedures None recorded. Surgeries None recorded. Imaging XR, ribs, unilateral , w/ PA chest - Fall posterior rib pain r/o fracture 2021 022 [facility] 1 [facility] [address] [place] [address], [place], [address], 2 14:32:27 Medication Orders Lidoderm 5 % topical patch 2021 022 [id number], [address] [facility], [place], [address], 13:26:25 Patient TargetsNo targets recorded. Patient Instructions Encounter Date Encounter Id Patient Instructions Last Modified By Organization Details Last Modified Time 11/04/2021 [id number] In order to meet our goal of providing quality urgent care in your home, your [facility] provider has ordered the following exam to be completed. The company we have partnered with that will be completing the exam listed above is: [employer] While you wait comfortably at home, you can expect a [facility] technologist to call you 30-45 minutes prior to arrival. Should you need to make special scheduling arrangements please call the number listed above and ask to speak with [facility] dispatcher. For your convenience, you can also request your technologist? s Estimated Time of Arrival (ETA) by calling the number listed above. Once requested, a [facility] dispatcher will call you back to let you know what time frame to expect the technologist to arrive within. Once your x-ray is completed, a radiologist will evaluate the test and interpret the results. Once the final report is received by [facility] from the reading radiologist a [facility] provider will call with the results. [email or web address] Not available 11/09/2021 08:31:32 Reason for Referral None Reported. Procedures Surgical History Date Name Laterality Status Provider Name and Address Organization Details Recorded Time oophorectomy completed Jadyn Chawla NP [address] [place], [address], [place] [facility] 11/04/2021 12:45:22 tonsillectomy completed Jadyn Chawla NP [address] [place], [address], [place] [facility] 11/04/2021 12:45:34 hip pin for fixation of epiphysis completed Jadyn Chawla NP [address] [place], [address], [place] [facility] 11/04/2021 12:45:46 Imaging Results None recorded. Procedure Notes None recorded. Medical Equipment None Reported. Allergies Allergen ID Allergen Name Allergen Category Reaction Reaction Severity Criticality Documentation Date Start Date Code Code System Note Provider Name and Address Organization Details Recorded Time 648026 Keflex medicatio n Not available Not available Not available 11/04/2021 66017 7 RxNorm Jadyn Chawla NP [address], [place], [address], [place] [facility] 12:39:43 405277 morphine medicatio n Not available Not available Not available 11/04/2021 7052 RxNorm Jadyn Chawla NP [address] [place], [address], [place] [facility] 23:00:50 Medications Name Sig Start Date Stop Date Status Note LastModified by Organization Details LastModified Time trazodone 50 mg tablet TAKE 1 TO 2 TABLETS BY MOUTH AT BEDTIME NEEDED FOR INSOMNIA active Not Available Not Available No t Available tramadol 50 mg tablet TAKE 1 TABLET BY MOUTH EVERY 6 HOURS NEEDED FOR SEVERE PAIN active Not Available Not Available No t Available temazepam 7.5 mg capsule TAKE 1 CAPSULE BY MOUTH EVERY DAY AT NIGHT NEEDED FOR INSOMNIA active Not Available Not Available No t Available temazepam 15 mg capsule TAKE 1 TO 2 CAPSULES BY MOUTH AT BEDTIME NEEDED active Not Available Not Available No t Available levothyroxi ne 50 mcg tablet TAKE 1 TABLET BY MOUTH EVERY DAY active Not Available Not Available No t Available lidocaine 5 % topical patch active Not Available Not Available Not Available dorzolamide 22.3 mg-timolol 6.8 mg/mL eye drops INSTILL 1 DROP INTO EACH EYE TWICE A DAY active Not Available Not Available No t Available Prolia 60 mg/mL subcutaneou s syringe Inject 1 mL by subcutaneo us route. active every 6 months Not Available Not Available Not Available Vitals Date Recorded Heart rate Oxygen saturation Oxygen saturation in Arterial blood by Pulse oximetry Body temperature Respiratory rate Oxygen saturation Oxygen saturation in Arterial blood by Pulse oximetry Systolic blood pressure Diastolic blood pressure Provider Name and Address Organization Details Last Updated DateTime 2 60 /min 90 % 90 % 99.1 [degF] 16 /min 94 % 94 % 128 mm[Hg] 78 mm[Hg] Not Available [facility] 12:50:51 Social History Question Answer Notes LastModified by Organizat ion Details LastModified Time Tobacco Smoking Status Former Smoker Jadyn Chawla NP [address], [place], [address], [place] [facility] 11/04/2021 12:44:48 What Is Your Level Of Alcohol Consumption? Occasional Information not available 11/04/2021 Within The Past 12 Months, Have You Worried That Your Food Would Run Out Before You Got Money To Buy More. No Information not available 11/04/2021 Fall Risk: Do You Feel Unsteady When Standing Or Walking? No Information not available 11/04/2021 Excessive Alcohol Or Drug Use Yes Information not available 11/04/2021 Does This Patient Have A PCP? Yes Information not available 11/04/2021 We Know From Many Of Our Patients That Covering All Of Their Costs Can Be Difficult At Times. This Can Cause Stress And Impact Health. In The Past Year, Have You Been Unable To Get Any Of The Following When It Was Really Needed? No Information not available 11/04/2021 What Is Your Housing Situation Today? I Have Housing Information not available 11/04/2021 Would You Like Help Connecting To Resources? None Information not available 11/04/2021 Do You Use Any Illicit Or Recreational Drugs? No Information not available 11/04/2021 How Many Years Have You Smoked Tobacco? 2 Information not available 11/04/2021 Do You Or Have You Ever Used Any Other Forms Of Tobacco Or Nicotine? No Information not available 11/04/2021 Sex: Unknown Functional Status None recorded. Mental Status None recorded. Family History Relationship Description Onset Age of this Age Resolved Age Notes LastModified by Organization Details LastModified Time Mother Malignant tumor of lung [email or web address] Not available 2021 12:41:20 Medical History Condition Response Hypothyroidism Y Gynecological HistoryNo gynecological history recorded. Obstetrics History GPAL:G 0 P 0 0 0 0 Past Encounters Encounter ID Performer Location Encounter Start Date Encounter Closed Date Diagnosis/Indication Diagnosis SNOMED-CT Code Diagnosis ICD10 Code Diagnosis Note [id number] Jadyn Chawla NP [facility] [address] [place] [address] 11/04/2021 12:33:11 11/16/2021 13:08:33 Contusion of rib 266728452 S20.20XA Health Concerns Section Related Observation LastModified by Organization Detai ls LastModified Time None Recorded Concern Status LastModified by Organization Details LastModified Time None Recorded Advance Directives Directive None Recorded Payers Encounter Date Sequence Insurance Name Policy Number Policy Campoverde Covered Member ID Campoverde Member ID Guarantor Name 11/04/2021 2 [place]: [facility] Anna Marie Gonzalez [id number] Anna Marie Gonzalez 11/04/2021 1 MEDICARE B-[place]: [facility] Anna Marie Gonzalez [id number] Anna Marie Gonzalez Notes Date Note Type Note Provider Name and Address Organization Details Recorded Time 11/04/2021 text/html 76 yo with a PMH of hypothyroidism, insomnia, osteoporosis, OA, and glaucoma reports that she got up to use bathroom at 530a this morning while very drowsy slipped and struck right posterior ribs on a chair. Pain increases with laying down, sitting is the best position for pain. Taking Tylenol that has been helpful. Jadyn Chawla NP [address], [place], [address], [place] [facility] 11/09/2021 08:31:47 OBGyn Episode No OBEpisode recorded.
--- OUTSIDE RECORDS SUMMARY | 2024-10-29 14:40 | XMS_ITS ---
Author Organization [facility] [place] Address [address] [place] [address] Care Team Providers Care Waiter/Waitress Buffet Name Role Phone Chauncey Peters Primary Care Provider Dominic Wilcox Unavailable [phone] Allergies Allergen (clinical drug ingredient) Drug/Non Drug [...] Ordered Date Performed Result Body Sit e 89518- Debride <25 sq cm 02/03/2024 N/A Encounters Encounter Location Date Provider Diagnosis [facility] [place] [address] [place] [address] 02/03/2024 Dominic Cao Skin ulcer of toe [...] INSTRUCTIONS.pdf) Pending Test Test Name Order Date 97921- Debride <25 sq cm 02/03/2024 Next Appt [...] of the wound post debridement is stable (69063) Progress Notes * Altagracia GONZALEZeDOB:1945 (79 yo F)Acc No.[id number]:02/03/2024 Progress Note Patient:Diamond Savageerie Provider:Phillip Cao DPM :1945???Age:79 Y???Sex:Female D ate:02/03/2024 Address:[address] [place], [place] [id number] Pcp:Chauncey Peters Subjective: * Chief Complaints: * [...] riding, workouts, walking. ?Marital status: single. 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 * Medications:?TakingCalcium + D3 , Notes: 600 [...] of the wound post debridement is stable (04619).? * Procedure Codes:?36776 ACTIV E WOUND CARE/20 CM OR < [...] Cao DPM Date:?2023 Generated for Tavo rahman/Minerva/Roderick on:?10/29/2024 02:40 PM EDT History and Physical Notes * HPI (History [...]
--- OUTSIDE RECORDS SUMMARY | 2024-10-29 14:40 | XMS_ITS ---
Author Organization [facility] Address [address] [place] [address] Care Team Providers Care Metallography Teacher Name Role Phone Chauncey Peters Primary Care Provider Dominic Wilcox Unavailable [phone] Anthony Aparicio [phone] Encounters Encounter Location Date Provider Diagnosis [facility] [address] [place] [address] 05/09/2024 Anthony Aparicio Plan Of Treatment No Information Progress Notes * CARLOSAltagraciaeDOB:1945 (79 yo F)Acc No.[id number]:05/09/2024 Progress Note Patient:?Anna Marie GONZALEZ Provider:?Anthony Aparicio DPM :1945???Age:79 Y???Sex:Female D ate:05/09/2024 Address:[address] [place], [place] [id number] Pcp:Chauncey Peters Subjective: * Chief Complaints: * ??? * Medical History:? Objective: * Vitals:? Assessment: Plan: * Treatment: * Images: * The named appointment provid er may or may not be the originator of this progress note, and it is not deemed complete until electronically signed by the appointment provider. Sign off status: Pending * Provider:Kari Aparicio DPM Date:? 024 Generated for Antoinettei josiah/Minerva/eTransmitting on:?10/29/2024 02:40 PM EDT
--- OUTSIDE RECORDS SUMMARY | 2024-10-29 14:41 | XMS_ITS | Continuity of Care Document ---
Author Organization [facility] [address] [place] [address] Phone [phone] Care Team Providers Care Telegraph Editor Name Role Phone Demetrius Mendoza NP Care Team Information Division Leader [phone] Problems Active Problems Provider Date Osteoporosis Carlos [...] Qnty Indications Order ing Provider Date Levothyroxine Wnrglp49bxn Tablets Take 1 Tablet By Mouth Every Day In The Morning 90tabs Carlos Oliver M.D. 03/18/2023 Uwkgrc96wl/ml Soln Prefill Syringe inject 60 mg under the skin every 6 months 1ml Carlos Oliver M.D. 03/16/2023 Dorzolamide HCL/Timolol Iwkfnld20.3-6.8mg/ml Solution Put 1 Drop Into Each Eye Twice A Day Inder Suazo M.D. Trazodone NMI30gd Tablets take 1 tablet by mouth at bedtime Unknown Cfkxrbzsd43bp Capsules Take 1 -2 Capsules AT Bedtime [...] 9.2 mg/dL 8.7-10.3 Comprehensive Metabolic Panl 09/16/2023 [facility] Glucose 111 mg/dL High (70-99) [...] 82 ML/MIN/1.7 3M2 1 Lipid Panel 09/16/2023 [facility] Cholesterol, Total 222 mg/dL High (<200) Triglyceride 69 mg/dL (<150) HDL Chol 88 mg/dL (>39) LDL Cholesterol, Calculated 120 mg/dL (0-130) Non HDL Cholesterol (Calc) 134 mg/dL (<160) Urinalysis Complete 09/16/2023 [facility] [address] Test not perform <SEE NOTE> 2 Complete Abc With Diff 09/16/2023 [facility] WBC 6.3 K/MM3 (4.0-11. 0) [...] ) Lymph # 1.2 K/MM3 (0.8-3.1 ) Grimes# 0.5 K/MM3 (0.4-0.9 ) Eo # 0.1 K/MM3 (0.0-0.4 ) Baso # 0.0 K/MM3 (0.0-0.1 ) Abs. Imm Gran 0.1 K/MM3 Neut 69.6 % (44-76) Lymph 19.2 % (15-43) Monocyte 7.3 % (4.5-10. 5) Eo 1.9 % (0-6) Baso 0.6 % (0-2) Imm Gran 1.4 % Laboratory test finding 09/16/2023 [facility] TSH With Reflex To FT4 0.42 uIU/mL (0.4-4.2 ) 25Oh Vitamin D 32.5 NG/ML (20-50 ) Phosphorus 3.1 mg/dL (2.5-4.5 ) PTH, Intact 97 pg/mL High (15-65) Basic Metabolic Panel 03/16/2023 [facility] Glucose 85 mg/dL (70-99) BUN 12 mg/dL (8-23) Creatinine 0.7 mg/dL (0.5-1.0 ) Sodium 141 mmol/L (133-145 ) Potassium 3.7 mmol/L (3.6-5.2 ) Chloride 102 mmol/L (98-107) Bicarbonate 27 mmol/L (22-29) Anion Gap 12 (4-17) Calcium 9.3 mg/dL (8.6-10. 5) Estimated GFR Creatinine 88 ML/MIN/1.7 3M2 3 Laboratory test finding 03/16/2023 [facility] Free T4 1.25 ng/dL (0.70-1. 80) Laboratory test finding 03/16/2023 [facility] TSH With Reflex To FT4 4.67 uIU/mL High (0.4-4.2 ) Laboratory test finding 09/17/2022 [facility] TSH With Reflex To FT4 <pending> Complete Abc With Diff 09/15/2022 [facility] WBC 7.8 K/MM3 (4.0-11. 0) [...] ) Lymph # 1.8 K/MM3 (0.8-3.1 ) Grimes# 0.5 K/MM3 (0.4-0.9 ) Eo # 0.1 K/MM3 (0.0-0.4 ) Baso # 0.0 K/MM3 (0.0-0.1 ) Abs. Imm Gran 0.0 K/MM3 Neut 68.1 % (44-76) Lymph 23.0 % (15-43) Monocyte 6.8 % (4.5-10. 5) Eo 1.3 % (0-6) Baso 0.5 % (0-2) Imm Gran 0.3 % Laboratory test finding 09/15/2022 [facility] TSH With Reflex To FT4 6.38 uIU/mL High (0.4-4.2 ) Comprehensive Metabolic Panl 09/15/2022 [facility] Glucose 91 mg/dL (70-99) BUN [...] ML/MIN/1.7 3M2 4 Laboratory test finding 09/15/2022 [facility] 25Oh Vitamin D 38.9 NG/ML (20-50) Free T4 1.19 ng/dL (0.70-1. 80) Laboratory test finding 03/18/2022 [facility] Calcium 8.8 mg/dL (8.6-10. 5) Creatine, Serum 0.5 5 Laboratory test finding 03/17/2022 [facility] Calcium <pending> Creatine, Serum <pending> [...] developed and its performance characteristics determined by [employer]. It has not been cleared or approved by the Food and Drug Administration. Test performed at [address] [address] Medical Devices Description No Information Available Encounters [...]
--- OUTSIDE RECORDS SUMMARY | 2024-10-29 14:41 | XMS_ITS | Patient Health Record ---
Author Organization [facility] Address [address] [place] [address] Care Team Providers Care Carcass Trimmer Name Role Phone Chauncey Peters Primary Care Provider Dominic Wilcox Unavailable [phone] Anthony Aparicio Unavailable [phone] Allergies Allergen (clinical drug ingredient) Drug/Non Drug [...] Problem Status W/U Status Risk Notes Problem [id number] Arthritis of right ankle (M19.071) Active confirmed Vital Signs Height 5 ft 2 in in 05/08/2024 Weight 105 lbs 05/08/2024 BMI 19.2 kg/m2 05/08/2024 Procedures Procedure Date Ordered Date Performed Result Body Sit e 84342 I&D ABSCESS- SIMPLE,SINGLE 12/14/2023 N/A 47140-BVZ 01/03/2024 N/A 66832- Debride <25 sq cm 02/03/2024 N/A Encounters Encounter [facility] Date [facility] [address] 12/14/2023 Dominic Cao Abscess of toe, right L02.611 and Ingrown nail L60.[address] [facility] [address] 01/03/2024 Dominic Kiley Ingrown nail L60.[address] [address] 02/03/2024 Dominic Robinsier Skin ulcer of toe of left foot, limited to breakdown of skin L97.[address] [address] 05/08/2024 Anthony Aparicio Pain in right foot M79.671 ; Sprain of anterior talofibular ligament of right ankle, initial encounter S93.491A ; Arthritis of right ankle M19.071 and Ingrown nail L60.[address] [address] 01/17/2024 Dominic Cao Assessments Encounter Date Diagnosis [...] Treatment Pending Test Test Name Order Date 10992-RVV 01/03/2024 36092- Debride <25 sq cm 02/03/2024 91355 I&D ABSCESS- SIMPLE,SINGLE 024 X ray : Ankle, right 3V 05/08/2024 Insurance Providers Payer Name Payer Address Payer Phone Subscriber Number Group Number Insured Name Patient Relationship to Insured Coverage Start Date Coverage End Date [facility] Medicare-[id number] [address] [place] [address] [id number] Anna Marie Gonzalez Self - patient is the insured Medical (General) History Medical History History ICD Code osteoarthritis Broken bones Cataracts Glaucoma Headaches/Migraines Osteoporosis thyroid Measles Chicken pox Joint implants/screws Surgical History Surgery Date(Month/Year) right hip replacement 02/2016 left hip replacement 06/2016 toenail surgery 12/2018 ? 1954
--- OUTSIDE RECORDS SUMMARY | 2024-10-29 14:41 | XMS_ITS ---
[facility] Address [address] [place] [address] Care Team Providers Care Recreation Worker Name Role Phone Fran Chauncey Primary Care Provider UnavailDominic Krishna Unavailable [phone] Anthony Aparicio Unavailable [phone] Allergies Allergen (clinical drug ingredient) Drug/Non Drug [...] Problem Status W/U Status Risk Notes Problem [id number] Arthritis of right ankle (M19.071) Active confirmed Vital Signs Height 5 ft 2 in in 05/08/2024 Weight 105 lbs 05/08/2024 BMI 19.2 kg/m2 05/08/2024 Encounters Encounter Location Date Provider Diagnosis [facility] [place] [address] [address] 05/08/2024 AnthonyDuggan Pain in right foot M79.671 [...] Notes * Altagracia GONZALEZeDOB:1945 (79 yo F)Acc No.[id number]:05/08/2024 Progress Note Patient:?Anna Marie Gonzalez Provider:?Anthony Aparicio DPM :1945???Age:79 Y???Sex:Female D ate:05/08/2024 Address:[address] [place] [address] [facility] Pcp:Chauncey Peters Subjective: * Chief Complaints: * [...] riding, workouts, walking. ?Marital status: single. 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 * Medications:?TakingCalcium + D3 , Notes: 600 [...] 3-4 weeks, Dx:, Refills ..?? * Procedure Codes:?80128 X-RAY EXAM OF RIGHT ANKLE 3V, Modifiers: [...] the office.?Physical Therapy:?Discussed the potential short and longterm benefits of physical therapy including pain relief, [...] DPM Date:? 024 Generated for Tavo rahman/Minerva/Roderick on:?10/29/2024 02:40 PM [...] ORIENTED: person,place, and ti me Vascular DP PULSES (B): 2/4, B/L PT PULSES (B): 2/4, B/L CAPILLARY FILL TIME: 3 secs. per digit, B/L TEMPERTURE GRADIENT (C): warm to cool, p roximal to distal, B/L TROPHIC CONDITION-TEXTURE/ELASTICITY/TURGOR/HAIR GROWTH (B): normal, B/L EDEMA (C): no edema TELANGECTASIA: absent VARICOSITIES: absent PIGMENTATION: [...]
== END 2024-10-29 13:41 | disposition home or self-care (01) ==
LOC: HO.HOP 13:04
PROVIDERS: PCP Internal Medicine; Visit Provider Clinical Nurse Specialist Psychiatric/Mental Health
DX: F41.1 Generalized anxiety disorder (principal); F51.01 Primary insomnia
CPT/HCPCS: 90833; 99214

== ENCOUNTER → 2024-10-29 13:04 | Outpatient (BNVA) | payer MEDICARE, MEDICAID, SELFPAY | PROVIDERS: PCP Internal Medicine; Visit Provider Clinical Nurse Specialist Psychiatric/Mental Health | DX: F41.1 Generalized anxiety disorder (principal); F51.01 Primary insomnia | CPT/HCPCS: 99212 ==

== ENCOUNTER 2025-01-29 13:21 | Outpatient (AMB) | payer MEDICARE, MEDICAID, SELFPAY ==
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
== END 2025-01-29 13:22 | disposition home or self-care (01) ==
LOC: HO.HOP 13:21
PROVIDERS: PCP Internal Medicine; Visit Provider Clinical Nurse Specialist Psychiatric/Mental Health
DX: F41.1 Generalized anxiety disorder (principal); F51.01 Primary insomnia
CPT/HCPCS: 99214

== ENCOUNTER → 2025-01-29 13:21 | Outpatient (BNVA) | payer MEDICARE, MEDICAID, SELFPAY | PROVIDERS: PCP Internal Medicine; Visit Provider Clinical Nurse Specialist Psychiatric/Mental Health | DX: F41.1 Generalized anxiety disorder (principal); F51.01 Primary insomnia | CPT/HCPCS: 99212 ==

== ENCOUNTER 2025-05-16 12:04 | Outpatient (AMB) | payer MEDICARE, MEDICAID, SELFPAY ==
--- OUTSIDE RECORDS SUMMARY | 2024-01-18 10:30 | XMS_ITS ---
[facility] Organization [facility] Address [address] [place] [address] Care Team Providers Care Ambulance Driver Name Role Phone Chauncey Peters Primary Care Provider Unavailabl Dominic Jackson Unavailable [phone] Encounters Encounter Location Date Provider Diagnosis [address] [address] 01/18/2024 Dominic Cao Plan Of Treatment Next Appt Details Provider Name:Sary hall, 06/07/2025 12:00:00 PM, [address] [place] [address], [phone], Progress Notes * Ronnie GONZALEZOB:1945 (80 yo F)Acc No.[id number]:01/18/2024 Progress Notes Patient: Ned TORRES Anna Marie Provider: Sami Cao DPM :1945 A ge:78 Y S ex:Female Date:01/18/2024 Address:[address] [place], [place] [id number] Pcp:Chauncey Peters Subjective: * Chief Complaints: * * Medical History: Objective: * Vitals: Assessment: Plan: * Treatment: * Images: * The named appointment provid er may or may not be the originator of this progress note, and it is not deemed complete until electronically signed by the appointment provider. Sign off status: Pending * Provider: Sami Cao DPM Date: 0 01/18/2024 Generated for Tavo rahman/Minerva/Basilitting on: 0 05/16/2025 05:01 PM EDT
--- OUTSIDE RECORDS SUMMARY | 2024-05-09 04:30 | XMS_ITS ---
Author Organization [facility] Address [address] [place] [address] Care Team Providers Care Computational Theory Scientist Name Role Phone Chauncey Peters Primary Care Provider Dominic Wilcox Unavailable [phone] Anthony Aparicio [phone] Encounters Encounter Location Date Provider Diagnosis [facility] [address] [place] [address] 05/09/2024 Anthony Aparicio Plan Of Treatment Next Appt Details Provider Name:Sary hall, 06/07/2025 12:00:00 PM, [address] [facility], [address], [address], Progress Notes * Ronnie GONZALEZOB:1945 (80 yo F)Acc No.[id number]:05/09/2024 Progress Note Patient: Ned NIESHAJesus Anna Marie Provider: Ary Aparicio DPM :1945 A ge:79 Y S ex:Female Date:05/09/2024 Address:[address] [place], [place] [id number] Pcp:Chauncey Peters Subjective: * Chief Complaints: * [...] DPM Date: 0 05/09/2024 Generated for Tavo rahman/Minerva/Roderick on: 0 05/16/2025 05:02 PM EDT
--- NOTE | 2025-05-16 12:15 | MHC.OFFVISPS ---
Intake Intake Visit Reasons: depression Levee Superintendent Required: No Allergies No Known Allergies Allergy (Verified 01/31/24 13:14) Medication List - Last Reconciled 05/16/25 by Tila Tamayo APRN dorzolamide 2% 1 drp ophthalmic (eye) BID dorzolamide-timolol 22.3-6.8 mg/mL ophthalmic (eye) levothyroxine mcg PO meloxicam mg PO temazepam 7.5 mg PO BEDTIME PRN temazepam 15 mg PO BEDTIME PRN trazodone 100 mg (2 x 50 mg) PO BEDTIME PRN HPI- Psychiatric Chief Complaint: depression HPI Narrative: pt seen for follow up of anxiety and insomnia. Pt reports she has had GI upset and diarrhea for weeks; she has seen PCP several times and had tests and its improved a little but not resolved; She is still waiting for housing; she is very anxious about it as its a financial strain to be where she is. she has had trouble sleeping and has utilized the extra 7.5mg of temazepam for sleep without ill effects. She denies SI or HI.We discussed adding SSRI but pt declines for now. Past Psychiatric History: anxiety, sleep disruption, she is coping by , listening to classical music which she found decreases worry, especially before bedtime. No SI no HI; No reported SE from current meds. Long history of anxiety and insomnia, outpatient therapy with Pamella Jacob at [facility] for 11 years- just ended with her recently. No inpatient level of care Subjective Subjective Subjective Medication Compliance: Yes Side effects from medications: No Review of Systems Medical Review of Systems: unchanged Mental Status Exam Mental Status Exam Patient Appearance: Well Grooomed and Appropriate Patient Orientation: Person, Place, Time and Situation Level of Consciousness: Awake, Appropriate and Alert Patient Behavior: Appropriate and Cooperative Mood Description: Anxious and Sad Affect Description: Anxious and Sad Patient Cognition Impaired: No Ability to Follow Directions: Good Speech Pattern: Clear, Appropriate and Coherent Memory Description: Intact Hallucinations: None Delusions: Not Present Thought Process: Intact and Goal Oriented Thought Content: positive for Intact and positive for Goal Oriented Judgement: Good Assessment and Plan Assessment & Plan (1) Generalized anxiety disorder: Status: Acute Code(s): F41.1 - Generalized anxiety disorder (2) Insomnia: Status: Acute Qualifiers: Insomnia type: primary Qualified Code(s): F51.01 - Primary insomnia Code(s): G47.00 - Insomnia, unspecified Plan continue meds as per below continue temazepam 15mg at bedtime follow up in 2 months Medications: Refilled temazepam 7.5 mg PO BEDTIME PRN 30 caps 2RF sleep trazodone 100 mg (2 x 50 mg) PO BEDTIME PRN 60 tabs 5RF insomnia Counseling and coordination of Care Pt. Self Management counseling: Exercise, Maintenance-social rhythm, Mod caffeine/ETOH intake, Nutrition education and improvement and General coping skills Medication management counseling: Effectiveness, Side effects, Dosing range, Duration, Drug interaction and Adherence Diagnosis and Prognosis Counseling: Accuracy of diagnosis, Prognosis over time, Problematic behaviors secondary to diagnosis and Adequacy of current interventions Details: I spent 30 minutes reviewing the record, seeing the patient and documenting in the medical record. Counseling provided to the patient/caregiver as outlined below. Addressed patient/caregiver concerns regarding current medication regime including effective adherence. Addressed patient/caregiver concerns regarding diagnosis and prognosis including accuracy of diagnosis, prognosis over time, impact of diagnosis. Addressed patient/caregiver concerns regarding impact of recent stressors. 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
--- OUTSIDE RECORDS SUMMARY | 2025-05-16 17:02 | XMS_ITS | Patient Health Record ---
Author Organization [facility] [place] Address [address] [place] [address] Care Team Providers Care Cuff Stitcher Name Role Phone Chauncey Peters Primary Care Provider Dominic Wilcox Unavailable [phone] Allergies Allergen (clinical drug ingredient) Drug/Non Drug [...] 05/08/2024 Active Physical Therapy . . . 2-3x/week; Duration: 3-4 weeks 05/08/2024 Active Levothyroxine Sodium 50 MCG 1 tablet in the morning on an empty stomach Orally Once a day; Duration: 30 day(s) Active Temazepam 15 MG 1 [...] Problem Status W/U Status Risk Notes Problem Arthritis of right ankle ([id number]) Arthritis of right ankle (M19.071) Active confirmed Plan Of Treatment Pending Test Test Name Order Date [id number] 01/03/2024 91789- Debride <25 sq cm 02/03/2024 09486 I&D ABSCESS- SIMPLE,SINGLE 024 X ray : Ankle, right 3V 05/08/2024 Next Appt Details Provider Name:Sary Mesa isabel, 06/07/2025 12:00:00 PM, [address], [address], [place], [address], Insurance Providers Payer Name Payer Address Payer Phone Subscriber Number Group Number Insured Name Patient Relationship to Insured Coverage Start Date Coverage End Date [facility] Medicare-309 95 [address] [address] [place] [address] [phone] [id number] Anna Marie Gonzalez Self - patient is the insured Medical (General) History Medical History History ICD Code osteoarthritis Broken bones Cataracts Glaucoma Headaches/Migraines Osteoporosis thyroid Measles Chicken pox Joint implants/screws Surgical History Surgery Date(Month/Year) right hip replacement 02/2016 left hip replacement 06/2016 toenail surgery 12/2018 ? 195
--- OUTSIDE RECORDS SUMMARY | 2025-05-16 17:02 | XMS_ITS | Continuity of Care Document ---
Author Organization [facility] Address [address] [place] [address] Phone [phone] Care Team Providers Care Catalyst Operator Gasoline Name Role Phone Demetrius Mendoza NP Care Team Information Train Dispatcher [phone] Problems Active Problems Provider Date Osteoporosis Carlos Oliver M.D. Onset: 0 09/15/2022 Hypothyroidism Carlos Oliver M.D. Onset: 0 03/16/2023 Social History Type Date Description Comments Sex Female Sex Unknown Tobacco Use Start: Unknown Never Smoked Cigarettes ETOH Use Occasionally consumes wine Allergies and adverse reactions Active Allergies Criticality Reaction Severity Comments Date Keflex Unable to assess criticality 09/15/2022 Medications Active Medications SIG Qnty Indications Order ing Provider Date Levothyroxine [id number] Tablets Take 1 Tablet By Mouth Every Day In The Morning 90tabs Carlos Oliver M.D. 03/18/2023 Fhtwnr72oo/ml Soln Prefill Syringe inject 60 mg under the skin every 6 months 1ml Carlos Oliver M.D. 03/16/2023 Dorzolamide HCL/Timolol Qkxldmf44.3-6.8mg/ml Solution Put 1 Drop Into Each Eye Twice A Day Inder Suazo M.D. Trazodone RTC43je Tablets take 1 tablet by mouth at bedtime Unknown Gyjyqxuaf56eo Capsules Take 1 -2 Capsules AT Bedtime as Needed Unknown Losartan Nsualaxtk34lv Tablets Unknown Vital Signs Date Vital Result Comment 03/28/2025 10:43am BP Systolic 108 mmHg BP Diastolic 66 mmHg Heart Rate 72 /min Height 62 inches 5'2 Weight 108.50 lb BMI (Body Mass Index) 19.8 kg/m2 Results Test Acquired Date Facility Test Result H/L Range Note Calcium 04/02/2025 [facility] Calcium 9.4 mg/dL 8.7-10.3 Albumin 04/02/2025 [facility] Albumin 4.2 g/dL 3.8-4.8 PTH, Intact 04/02/2025 [facility] PTH, Intact 37 pg/mL 15-65 N-Telopeptide, Urine 04/02/2025 [facility] N-Telopeptide 182 nmolBCE Not Estab. Creatinine, Urine 71.4 mg/dL Not Estab. N-Telo/Creat. Ratio 29 nMBCE/mMCr 0-89 Interpretive Guide: See Comment: 1 Basic Metabolic Panel (8) 04/02/2025 [facility] Glucose 91 mg/dL 70-99 BUN 9 mg/dL 8-27 Creatinine 0.72 mg/dL 0.57-1.0 0 eGFR 85 mL/min/1.7 3 >59 BUN/Creatinine Ratio 13 12-28 Sodium 144 mmol/L 134-144 Potassium 3.9 mmol/L 3.5-5.2 Chloride 106 mmol/L 96-106 Carbon Dioxide, Total 24 mmol/L 20-29 Calcium 03/23/2024 [facility] Calcium 9.2 mg/dL 8.7-10.3 Creatinine 03/23/2024 [facility] Creatinine 0.79 mg/dL 0.57-1.0 0 eGFR 77 mL/min/1.7 3 >59 BUN 03/23/2024 [facility] BUN 11 mg/dL 8-27 Albumin 03/23/2024 [facility] Albumin 4.1 g/dL 3.8-4.8 Phosphorus 09/16/2023 [facility] Phosphorus 3.1 mg/dL (2.5-4.5 ) PTH, Intact 09/16/2023 [facility] PTH, Intact 97 pg/mL High (15-65) 25Oh Vitamin D 09/16/2023 [facility] 25Oh Vitamin D 32.5 NG/ML (20-50) TSH With Reflex To FT4 09/16/2023 [facility] TSH With Reflex To FT4 0.42 uIU/mL (0.4-4.2 ) Urinalysis Complete 09/16/2023 [facility] [address] Test not perform <SEE NOTE> 2 Lipid Panel 09/16/2023 [facility] Cholesterol, Total 222 mg/dL High (<200) Triglyceride 69 mg/dL (<150) HDL Chol 88 mg/dL (>39) LDL Cholesterol, Calculated 120 mg/dL (0-130) Non HDL Cholesterol (Calc) 134 mg/dL (<160) Comprehensive Metabolic Panl 09/16/2023 [facility] Glucose 111 mg/dL High [...] (0-33) Estimated GFR Creatinine 82 ML/MIN/1.7 3M2 3 Complete Abc With Diff 09/16/2023 [facility] WBC 6.3 K/MM3 (4.0-11. [...] ) Lymph # 1.2 K/MM3 (0.8-3.1 ) [place]# 0.5 K/MM3 (0.4-0.9 ) Eo # 0.1 K/MM3 (0.0-0.4 ) Baso # 0.0 K/MM3 (0.0-0.1 ) Abs. Imm Gran 0.1 K/MM3 Neut 69.6 % (44-76) Lymph 19.2 % (15-43) Monocyte 7.3 % (4.5-10. 5) Eo 1.9 % (0-6) Baso 0.6 % (0-2) Imm Gran 1.4 % TSH With Reflex To FT4 03/16/2023 [facility] TSH With Reflex To FT4 4.67 uIU/mL High (0.4-4.2 ) Basic Metabolic Panel 03/16/2023 [facility] Glucose 85 mg/dL (70-99) BUN 12 mg/dL (8-23) Creatinine 0.7 mg/dL (0.5-1.0 ) Sodium 141 mmol/L (133-145 ) Potassium 3.7 mmol/L (3.6-5.2 ) Chloride 102 mmol/L (98-107) Bicarbonate 27 mmol/L (22-29) Anion Gap 12 (4-17) Calcium 9.3 mg/dL (8.6-10. 5) Estimated GFR Creatinine 88 ML/MIN/1.7 3M2 4 Free T4 03/16/2023 [facility] Free T4 1.25 ng/dL (0.70-1. 80) TSH With Reflex To FT4 09/17/2022 [facility] TSH With Reflex To FT4 <pending> Complete Abc With Diff 09/15/2022 [facility] WBC 7.8 K/MM3 (4.0-11. [...] ) Lymph # 1.8 K/MM3 (0.8-3.1 ) [place]# 0.5 K/MM3 (0.4-0.9 ) Eo # 0.1 K/MM3 (0.0-0.4 ) Baso # 0.0 K/MM3 (0.0-0.1 ) Abs. Imm Gran 0.0 K/MM3 Neut 68.1 % (44-76) Lymph 23.0 % (15-43) Monocyte 6.8 % (4.5-10. 5) Eo 1.3 % (0-6) Baso 0.5 % (0-2) Imm Gran 0.3 % Free T4 09/15/2022 [facility] Free T4 1.19 ng/dL (0.70-1. 80) 25Oh Vitamin D 09/15/2022 [facility] 25Oh Vitamin D 38.9 NG/ML (20-50) Comprehensive Metabolic Panl 09/15/2022 [facility] Glucose 91 mg/dL (70-99) [...] (0-33) Estimated GFR Creatinine 91 ML/MIN/1.7 3M2 5 TSH With Reflex To FT4 09/15/2022 [facility] TSH With Reflex To FT4 6.38 uIU/mL High (0.4-4.2 ) Calcium 03/18/2022 [facility] Calcium 8.8 mg/dL (8.6-10. 5) Creatine, Serum 03/18/2022 [facility] Creatine, Serum 0.5 6 Calcium 03/17/2022 [facility] Calcium <pending> Creatine, Serum 03/17/2022 [facility] Creatine, Serum <pending> 1 The N-telopeptide an d Creatinine are used to calculate the N-telo/Creat. Ratio which is referred to as NTx . Suggested guidelines for the clinical use of NTx are as follows: 1. Menopausal Women not on Hormone Replacement Therapy (HRT): Women with a baseline NTx value >38 are at significant risk for a decrease in bone mineral density (BMD) after 1 year compared to women on HRT. The probability of a decline in BMD increases with NTx value as follows: (1): Baseline NTx Probability of Decrease in BMD 18- 38 1.4 p=0.28 38- 51 2.5 p=0.03 51- 67 3.8 p=0.0006 67-188 17.3 p=0.0001 2. Menopausal Women Receiving Antiresorptive Therapy: The probability that treatment is effective after three months is increased when the measured NTx value is <or=38 nM BCE/mM CHARGE COORDINATOR, or NTx has decreased >or=30% from baseline.[1] 3. Patients with Paget's Disease of Bone: The probability that treatment is effective after one month is increased when the measured NTx value is within the reference range, or NTx has decreased >or=30% from baseline.[2] 1. Brandy CH, Rendon NH, Rl GS, et al. Am J Med, 102:29-37,1997. (1):M757, 1996. 2. Shubham H, Wally Taylor, et al. J Bone Min Res.11(1):M757,1996 2 Test not performed,q uantity insufficient 3 [...] from serum creatinine, age and sex. 5 Creatinine based est imated glomerular filtration (eGFR) in adults is calculated using the National Kidney Foundation recommended 2021 CKD-EPI equation. Estimates GFR from serum creatinine, age and sex. 6 Reference range: 0.1 to 1.0 Unit: mg/dL (NOTE) This test was developed and its performance characteristics determined by [employer]. It has not been cleared or approved by the Food and Drug Administration[place] [address] Medical Devices Description No Information Available Encounters Type Date Location Provider Dx Diagnosis Office Visit 03/28/2025 10:45a Main Office Carlos Oliver M.D. M81.0 Age-related osteoporosis w/o current pathological fracture Assessments Date Code Description Provider 03/28/2025 M81.0 Age-related oste oporosis without current pathological fracture Carlos Oliver M.D. Plan of Treatment Future Appointment(s):* 04/01/2026 1:15 pm - Carlos Oliver M.D. at Main Office 03/28/2025 - Carlos Oliver M.D.* M81.0 Age-related osteoporosis without current pathological fracture Functional Status Description No Information Available Mental Status Description No Information Available Referrals Description No Information Available
== END 2025-05-16 12:39 | disposition home or self-care (01) ==
LOC: HO.HOP 12:04
PROVIDERS: PCP Internal Medicine; Visit Provider Clinical Nurse Specialist Psychiatric/Mental Health
DX: F41.1 Generalized anxiety disorder (principal); F51.01 Primary insomnia
CPT/HCPCS: 99214

== ENCOUNTER → 2025-05-16 12:04 | Outpatient (BNVA) | payer MEDICARE, MEDICAID, SELFPAY | PROVIDERS: PCP Internal Medicine; Visit Provider Clinical Nurse Specialist Psychiatric/Mental Health | DX: F41.1 Generalized anxiety disorder (principal); F51.01 Primary insomnia; G47.00 Insomnia, unspecified | CPT/HCPCS: 99212 ==

== ENCOUNTER 2025-07-02 15:53 | Outpatient (AMB) | payer MEDICARE, MEDICAID, SELFPAY ==
--- OUTSIDE RECORDS SUMMARY | 2024-01-18 09:30 | XMS_ITS ---
Author Organization [facility] Address [address] [place] [address] Care Team Providers Care Neurology Nurse Name Role Phone Christopher Azevedo Primary Care Provider Unavailabl Dominic Jackson Unavailable [phone] Encounters Encounter Location Date Provider Diagnosis [facility] [address] [address] 01/18/2024 Dominic Cao Plan Of Treatment No Information Progress Notes * Altagracia GONZALEZeDOB:1945 (80 yo F)Acc No.[id number]:01/18/2024 Progress Notes Patient: Anna Marie BARRON Provider: Sami Cao DPM :1945 A ge:78 Y S ex:Female Date:01/18/2024 Address:[address] [place], [place] [id number] Pcp:Christopher Azevedo Subjective: * Chief Complaints: * * Medical History: Objective: * Vitals: Assessment: Plan: * Treatment: * Images: * The named appointment provid er may or may not be the originator of this progress note, and it is not deemed complete until electronically signed by the appointment provider. Sign off status: Pending * Provider: Sami Cao DPM Date: 0 01/18/2024 Generated for Tavo rahman/Minerva/eTcysmitting on: 09/01/2024 05:17 PM EST
--- OUTSIDE RECORDS SUMMARY | 2024-05-09 03:30 | XMS_ITS ---
Author Organization [facility] Address [address] [place] [address] Care Team Providers Care Forensic Structural Engineer Name Role Phone Christopher Azevedo Primary Care Provider Dominic Wilcox Unavailable [phone] Anthony Vidales Unavailable [phone] Encounters Encounter Location Date Provider Diagnosis [address] [address] 05/09/2024 Anthony Vidales Plan Of Treatment No Information Progress Notes * Altagracia GONZALEZeDOB:1945 (80 yo F)Acc No.[id number]:05/09/2024 Progress Note Patient: Anna Marie BARRON Provider: Ary Aparicio DPM :1945 A ge:79 Y S ex:Female Date:05/09/2024 Address:[address] [place], [place] [id number] Pcp:Christopher Azevedo Subjective: * Chief Complaints: * * Medical History: Objective: * Vitals: Assessment: Plan: * Treatment: * Images: * The named appointment provid er may or may not be the originator of this progress note, and it is not deemed complete until electronically signed by the appointment provider. Sign off status: Pending * Provider: Ary Aparicio DPM Date: 0 05/09/2024 Generated for Tavo rahman/Minerva/eTransmitting on: 1 09/01/2024 05:17 PM EST
--- OUTSIDE RECORDS SUMMARY | 2025-06-07 07:00 | XMS_ITS ---
Author Organization [facility] Address [address] [place] [address] Care Team Providers Care Medical Case Manager Name Role Phone Christopher Azevedo Primary Care Provider Dominci Wilcox Unavailable [phone] Sary Chauhan [phone] Encounters Encounter Location Date Provider Diagnosis [facility] [address] [address] 06/07/2025 Sary Chauhan Plan Of Treatment No Information Progress Notes * Altagracia GONZALEZeDOB:1945 (80 yo F)Acc No.[id number]:06/07/2025 Progress Note Patient: Anna Marie BARRON Provider: Blayne Chauhan DPM :1945 A ge:80 Y S ex:Female Date:06/07/2025 Address:[address] [place], [place] [id number] Pcp:Christopher Azevedo Subjective: * Chief Complaints: * * Medical History: Objective: * Vitals: Assessment: Plan: * Treatment: * Images: * The named appointment provid er may or may not be the originator of this progress note, and it is not deemed complete until electronically signed by the appointment provider. Sign off status: Pending * Provider: Blayne Chauhan DPM Date: Generated for Tavo rahman/Minerva/eTransmitting on: 09/01/2024 05:17 PM EST
--- OUTSIDE RECORDS SUMMARY | 2025-07-02 09:30 | XMS_ITS ---
[facility] Address [address] [place] [address] Care Team Providers Care Pharm Spec Name Role Phone Christopher Azevedo Primary Care Provider Dominic Wilcox Unavailable [phone] Sary Chauhan Unavailable [phone] Allergies Allergen (clinical drug ingredient) Drug/Non Drug Allergy documented on EMR Reaction Allergy Type Onset Date Status Keflex rash Drug Allergy Active Medicinal cephalosporin and acting as antibacterial agent (FN) Cephalosporins Unknown Drug Allergy Active REASON FOR VISIT Wart(s), Ingrown Nail Medications Medication SIG (Take, Route, Frequency, Duration) Notes Start Date End Date Status Calcium + D3 600 mg Active traZODone HCl Active Temazepam 15 MG 1 capsule at bedtime as needed Orally Once a day Active Levothyroxine Sodium 50 MCG 1 tablet in the morning on an empty stomach Orally Once a day; Duration: 30 day(s) Active Dorzolamide HCl 2 % 1 drop into affected eye Ophthalmic Three times a day Active Reclast Active Losartan Potassium 25 MG 1 tablet Orally Once a day Active Trazamine 50 mg 1 per day Not-Taking traZODone HCl Not-Ta shira Prolia Not-Taking Physical Therapy . . . 2-3x/week; Duration: 3-4 weeks 05/08/2024 Not-Taking Voltaren 1 % as directed Externally 05/08/2024 Not-Taking Social History Tobacco Use: Social History Observation Description Date Details (start date - stop date) Never Smoker NA - NA Tobacco use other than smoking: Question Answer Notes Are you an other tobacco user? No Tobacco Control (Standard) Question Answer Notes Tobacco use: Nonsmoker Additional Findings: Tobacco non-user Current no nsmoker AUDIT-C (Standard) Question Answer Notes Did you have a drink contain ing alcohol in the past year? Yes How often did you have a dri nk containing alcohol in the past year? 2 to 3 times a week (3 points) How many drinks did you have on a typical day when you were drinking in the past year? 1 or 2 drinks (0 point) How often did you have six o r more drinks on one occasion in the past year? Never (0 point) Points 3 Interpretation Positive Problems Problem Type SNOMED Code ICD Code Onset Dates Problem Status W/U Status Risk Notes Problem Plantar wart (42389383) Plantar wart (B07.0) Active confirmed Vital Signs Height 5 ft 2 in in 07/02/2025 Weight 107 lbs 07/02/2025 BMI 19.57 kg/m2 07/02/2025 Procedures Procedure Date Ordered Date Performed Result Body Sit e 95241-Znqj Destruction, 1-14 07/02/2025 N/A 26802-Cejzsyby Plate 07/02/2025 N/A Encounters Encounter Location Date Provider Diagnosis [facility] [address] [address] 07/02/2025 Sary Chauhan Right foot pain M79.671 ; Plantar wart B07.0 and Ingrown nail L60.0 Assessments Encounter Date Diagnosis (ICD Code) Assessment Notes Treatment Notes Treatment Clinical Notes Section Notes 07/02/2025 Right foot pain (ICD-10 - M79.671) 07/02/2025 Plantar wart (ICD-10 - B07.0) 07/02/2025 Ingrown nail (ICD-10 - L60.0) Plan Of Treatment Pending Test Test Name Order Date [id number]-Mruj Destruction, 1-14 07/02/2025 67831-Yadcpobz Plate 07/02/2025 Next Appt Details Follow Up: 3 Months, Reason: Procedure Notes * Category Sub-Category Detail Notes Wart Treatment Procedure Verruca, as desc ribed in exam, were debrided to pin- point bleeding margins with sterile 15 surgical blade, silver nitrate chemocautery applied, recomm. immune-boosting meds such as zinc, recomm. follow up with topical chemosurgical agents, Pt defers any other forms of tx - 88616 Progress Notes * Altagracia GONZALEZeDOB:1945 (80 yo F)Acc No.[id number]:07/02/2025 Progress Note Patient: Anna Marie BARRON Provider: Blayne Chauhan DPM :1945 A ge:80 Y S ex:Female Date:07/02/2025 Address:[address] [place], [place] [id number] Subjective: * Chief Complaints: * W art(s)Ingrown Nail * HPI: S kin problems: Pt States PCP Visit: D ATE 0 05/15/2025 * ROS: G eneral/Constitutional: Nausea d enies. V omiting d enies. H sage Thirst d enies. L oss appetite d enies. C hills d enies. F atigue d enies.?Fever d enies. N ight Sweats d enies. U nexplained weight loss d enies. U nexplained weight gain d enies. H EENTM: Dentures d enies. D izziness d enies. G lasses/contacts a dmits. R etinopathy d enies. B lurred/double vision d enies. T MJ?denies. D ischarge/drainage d enies. I mplants d enies. S ore throat d enies. D ental implants d enies. H krystle of hearing d enies. D ifficulty chewing/swallowing/speaking d enies. N ose bleeds d enies. S ore mouth d enies. ? R espiratory: On Oxygen d enies. P neumonia/pleurisy d enies.?Bronchitis d enies. E mphysema d enies. C oughing d enies. C ough blood?denies. S hortness of breath d enies. W heezing d enies. C ardiovascular: Pacemaker d enies. 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 W PW d enies. C HF d enies. H eart attack d enies. S eptal defect d enies. R apid beat d enies. C hest pain d enies. A trial Fib. d enies. M urmur/Palpitations d enies. G astrointestinal: Hemorrhoids d enies. S tomach/Abdominal pain d enies. D ark blood stool d enies. I rritable bowel d enies. C onstipation d enies. D iarrhea d enies. H ematology: Swelling d enies. C lots d enies. V aricose Veins d enies. B ruising d enies. B leeding problem d enies. G enitourinary: Blood urine d enies. F requent/Painfu/urination/bladder control d enies. K idney stones d enies. I nfection (UTI) d enies. N ephropathy d enies. s ex trans dis (STD) d enies. P rostate d enies. M usculoskeletal: Hammertoes a dmits. B unions d enies. B ack Pain d enies. M uscle Cramps/ Resting d enies. M uscle cramps / walking d enies.?Generalized aches and pains d enies. W eakness d enies. I nteg.: Marcus d enies. S cars d enies. C orns/calluses?denies. I ngrown nails a dmits. P ainful nails a dmits. O pen Sores d enies. R ashes d enies. N eurologic: Difficulty sleeping d enies. B rain disorder d enies. N umbness d enies. B alance trouble d enies. C onfusion d enies. F ainting/blackouts d enies. T ingling d enies. T remors d enies. * Medical History: * Surgical History: r ight hip replacement 02/2016left hip replacement 06/2016toenail surgery 12/2018? 1955infusion, reclast, once a year 05/2025 * Hospitalization/Major Diagno stic Procedure: N o Hospitalization History. * Family History: M other: , diagnosed with Other malignant neoplasm of unspecified site, Family history of arthritis. F ather: , diagnosed with Unspecified heart disease. S iblings: diagnosed with Diabetic - NIDDM. * Social History: T obacco Use: T obacco use other than smoking A re you an other tobacco user? N o Tobacco Control (Standard) T obacco use: N onsmoker A dditional Findings: Tobacco non-user C urrent nonsmoker D rugs/Alcohol: D rugs H ave you used drugs other than those for medical reasons in the past 12 months? N o M iscellaneous: C affeine: no. Children: yes, 1. Exercise: yes, bike riding, workouts, walking. Marital status: single. 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 D rug/Alcohol: A JAKE-C (Standard) D id you have a drink containing alcohol in the past year? Y es H ow often did you have a drink containing alcohol in the past year? 2 to 3 times a week (3 points) H ow many drinks did you have on a typical day when you were drinking in the past year? 1 or 2 drinks (0 point) H ow often did you have six or more drinks on one occasion in the past year? N ever (0 point) P oints 3 I nterpretation P ositive * Medications: T akingLosartan Potassium 25 MG Tablet 1 tablet Orally Once a day Reclast Calcium + D3 , Notes to Pharmacist: 600 mgDorzolamide HCl 2 % Solution 1 drop into affected eye Ophthalmic Three times a day Levothyroxine Sodium 50 MCG Tablet 1 tablet in the morning on an empty stomach Orally Once a day Temazepam 15 MG Capsule 1 capsule at bedtime as needed Orally Once a day traZODone HCl Taking Losartan Potassium 25 MG Tablet 1 tablet Orally Once a day Taking Reclast Taking Calcium + D3 , Notes to Pharmacist: 600 mgTaking Dorzolamide HCl 2 % Solution 1 drop into affected eye Ophthalmic Three times a day Taking Levothyroxine Sodium 50 MCG Tablet 1 tablet in the morning on an empty stomach Orally Once a day Taking Temazepam 15 MG Capsule 1 capsule at bedtime as needed Orally Once a day Taking traZODone HCl Not-Taking/PRNPhysical Therapy . . . . 2-3x/week Voltaren 1 % Gel as directed Externally Prolia traZODone HCl Trazamine , Notes to Pharmacist: 50 mg 1 per dayMedication List reviewed and reconciled with the patientNot-Taking/PRN Physical Therapy . . . . 2-3x/week Not-Taking/PRN Voltaren 1 % Gel as directed Externally Not-Taking/PRN Prolia Not-Taking/PRN traZODone HCl Not-Taking/PRN Trazamine , Notes to Pharmacist: 50 mg 1 per dayMedication List reviewed and reconciled with the patient * Allergies: C ephalosporinsKeflex: rashyes[Allergies Verified] Objective: * Vitals: H t: 5 ft 2 in, Wt: 107, BMI: 19.57, Shoe size: 6.5, Wt-k.53 kg. * Examination: D ermatologic: SKIN FINDINGS: S kin exam reveals normal texture, elasticity, and turgor. There are no masses. The interspaces are clear. VERRUCA: R rosendo a Single , multi-loculated , mosaic-patterned, round, raised, flat- topped, petechial bleeding papule(s), with cauliflower appearance and interruption of skin lines, pain to lateral compression, and size estimated at 10 mm diameter, plantarforefoot, RIGHT. I ngrown Nail: INSPECTION: R parkers nail incurvation, pain on palpation, groove hypertrophy , Bilateral nail borders, T5. G eneral Examination: GENERAL APPEARANCE: Saurav robbins a pleasant, alert, well-nourished, well-developed, well hydrated individual, who demonstrates proper attention to hygiene/body habitus, and is in no acute distress, Pt serves as own h istorian for office visit today. ORIENTED: p erson, place, and time. N eurological: SENSORY: N eurological exam reveals intact sensorium, pain sensation normal, vibration sensation intact, pinprick sensation is normal in the lower extremities, Pt denies, anesthesia, burning, paresthesia, tingling, B/L. DEEP TENDON REFLEXES: A chilles, 2/4, B/L. V ascular: DP PULSES (B): 3 /4, B/L. PT PULSES (B): 3 /4, B/L. CAPILLARY FILL TIME: i mmediate, all digits, B/L. TROPHIC CONDITION-TEXTURE/ELASTICITY/TURGOR/HAIR GROWTH (B):?normal, B/L. TEMPERTURE GRADIENT (C): w arm to cool, proximal to distal, B/L. PIGMENTATION: n ormal, B/L. EDEMA (C): a bsent, B/L. O rthopedic: MUSCLE STRENGTH: 5 /5 all groups in a symmetrical fashion , B/L. Assessment: * Assessment: 1. R ight foot pain - M79.671 2 . P lantar wart - B07.0 (Primary) ? 3 . I ngrown nail - L60.0 S pecify :Acute Problem, Uncomplicated (3) Plan: * Treatment: 2. I ngrown nail P rocedure: 95706-Cickrysl Plate * Procedures: W art Treatment: Procedure V erruca, as described in exam, were debrided to pin-point bleeding margins with sterile 15 surgical blade, silver nitrate chemocautery applied, recomm. immune-boosting meds such as zinc, recomm. follow up with topical chemosurgical agents, Pt defers any other forms of tx - 07858. * Procedure Codes: 1 7110 Wart Destruction, 1-14, Modifiers: XS * Preventive Medicine: Counseling: D iscussion: - 13: Office or other outpatient visit for the evaluation and management of an established patient, which required a medically appropriate history and/or examination and LOW level of DECISION MAKING for: 1 STABLE ACUTE UNCOMPLICATED PROBLEM, 2 OR MORE MINOR PROBLEMS, OR 1 STABLE CHRONIC PROBLEM, THAT POSE(S) A LOW RISK FOR MORBIDITY/MORTALITY. The visit on the day of the [...] have encouraged the patient to call the office. A bscess/Paraonychia/Ingrown Nails: W jabari discussed the possible etiologies (genetic, improper nail care, shoe gear, nail trauma) which may lead to ingrown nails and/or paronychial infections. We discussed and reviewed palliative/nonsurgical/deferring definitive treatment (vs) undergoing the treatment procedures of nail avulsion(s) or PNA, which may prevent recurrence and give more lasting results. The possible risks/complications such as worsened condition/delayed healing/nonhealing/failure/recurrence/infection, the potential benefits/advantages of decreased pain/deformity, as well as alterative treatment options including applying nail softening agents/nail groove packing were discussed. No guarantees were given regarding any outcome for any procedure. The patient was educated in the length of time for the affected nail to regrow once completely healed from a nail avulsion procedure. Once the condition has completely healed, the patient was consulted on proper nail care. Patient questions such as details of each procedure, varying time to heal, activity post procedure, and shoe gear were discussed and the answers were verbally confirmed fully understood, slant back performed with good relief of pain, pt to monitor for any signs of infection, pt should soak in warm water and epsom salts and apply antibotic ointment, call with any issues. * Follow Up: 3 Months * Images: * Sign off status: Completed true * Provider: Blayne Chauhan DPM Date: 09/01/2024 Generated for Tavo rahman/Minerva/Roderick on: 09/01/2024 05:17 PM EST History and Physical Notes * HPI (History of Present Illness) Category Sub-Category Detail Notes Category Not es Skin problems Pt States PCP Visit: DATE: 05/15/2025 Examination Category Sub-Category Detail Notes Category Not es Ingrown Nail INSPECTION: Reveals nail inc urvation, pain on palpation, groove hypertrophy , Bilateral nail borders, T5 Neurological SENSORY: Neurological exa m reveals intact sensorium, pain sensation normal, vibration sensation intact, pinprick sensation is normal in the lower extremities, Pt denies, anesthesia, burning, paresthesia, tingling, B/L DEEP TENDON REFLEXES: Achilles, 2/4, B/L Dermatologic SKIN FINDINGS: Skin exam reveal s normal texture, elasticity, and turgor. There are no masses. The interspaces are clear VERRUCA: Reveals a Single , m ulti-loculated , mosaic-patterned, round, raised, flat-topped, petechial bleeding papule(s), with cauliflower appearance and interruption of skin lines, pain to lateral compression, and size estimated at 10 mm diameter, plantarforefoot, RIGHT Orthopedic MUSCLE STRENGTH: 5/5 all groups in a symm etrical fashion , B/L General Examination GENERAL APPEARANCE: Reveals a pleasant, alert, well- nourished, well-developed, well hydrated individual, who demonstrates proper attention to hygiene/body habitus, and is in no acute distress, Pt serves as own historian for office visit today ORIENTED: person, place, and t shivam [facility] DP PULSES (B): 3/4, B/L PT PULSES (B): 3/4, B/L CAPILLARY FILL TIME: immediate, all digi ts, B/L TEMPERTURE GRADIENT (C): warm to cool, p roximal to distal, B/L TROPHIC CONDITION-TEXTURE/ELASTICITY/TURGOR/HAIR GROWTH (B): normal, B/L EDEMA (C): absent, B/L PIGMENTATION: normal, B/L
--- NOTE | 2025-07-02 13:14 | A.OFFPSYCH_ITS ---
Intake Intake Visit Reasons: depression School Health Aide Required: No Allergies No Known Allergies Allergy (Verified 01/31/24 13:14) Medication List - Last Reconciled 07/02/25 by Tila Tamayo APRN dorzolamide 2% 1 drp ophthalmic (eye) BID dorzolamide-timolol 22.3-6.8 mg/mL ophthalmic (eye) levothyroxine mcg PO losartan 25 mg PO DAILY meloxicam mg PO temazepam 7.5 mg PO BEDTIME PRN temazepam 15 mg PO BEDTIME PRN trazodone 100 mg (2 x 50 mg) PO BEDTIME PRN HPI- Psychiatric Chief Complaint: depression HPI Narrative: pt seen via telehealth for follow up of anxiety and insomnia. Pt reports she has had GI upset and diarrhea for weeks; is ffeling better physically; Her son has had medical issues that have worried her. She is still waiting for housing; She is very anxious about it as its a financial strain to be where she is. she has had trouble sleeping and has utilized the extra 7.5mg of temazepam for sleep wi thout ill effects. She denies SI or HI.We discussed adding SSRI but pt declines for now. Past Psychiatric History: anxiety, sleep disruption, she is coping by , listening to classical music which she found decreases worry, especially before bedtime. No SI no HI; No reported SE from current meds. Long history of anxiety and insomnia, outpatient therapy with Pamellaingrid Jacob at [facility] for 11 years- just ended with her recently. No inpatient level of care Subjective Subjective Medication Compliance: Yes Side effects from medications: No Review of Systems Medical Review of Systems: unchanged Mental Status Exam Mental Status Exam Patient Appearance: Well Grooomed and Appropriate Patient Orientation: Person, Place, Time and Situation Level of Consciousness: Awake, Appropriate and Alert Patient Behavior: Appropriate and Cooperative Mood Description: Anxious and Sad Affect Description: Anxious and Sad Patient Cognition Impaired: No Ability to Follow Directions: Good Speech Pattern: Clear, Appropriate and Coherent Memory Description: Intact Hallucinations: None Delusions: Not Present Thought Process: Intact and Goal Oriented Thought Content: positive for Intact and positive for Goal Oriented Judgement: Good Telehealth Telehealth Telehealth Platform: [facility] Location of provider rendering services: practice address Location of patient: address on file Patient Identification confirmed using: Name, : Yes Telehealth method: video Patient verbally consented to treatment: Yes Patient verbally consented to billing insurance company: Yes Patient informed of any privacy concerns related to visit: Yes Minutes spent on Phone/Video with Pt.: 25 Assessment and Plan Assessment & Plan (1) Generalized anxiety disorder: Status: Acute Code(s): F41.1 - Generalized anxiety disorder (2) Insomnia: Status: Acute Qualifiers: Insomnia type: primary Qualified Code(s): F51.01 - Primary insomnia Code(s): G47.00 - Insomnia, unspecified Plan continue meds as per below continue temazepam 15mg at bedtime follow up in 2 months Medications: New losartan 25 mg PO DAILY Counseling and coordination of Care Pt. Self Management counseling: Exercise, Maintenance-social rhythm, Mod caffeine/ETOH intake, Nutrition education and improvement and General coping skills Medication management counseling: Effectiveness, Side effects, Dosing range, Duration, Drug interaction and Adherence Diagnosis and Prognosis Counseling: Accuracy of diagnosis, Prognosis over time, Problematic behaviors secondary to diagnosis and Adequacy of current interventions Details: I spent 30 minutes reviewing the record, seeing the patient and documenting in the medical record. Counseling provided to the patient/caregiver as outlined below. Addressed patient/caregiver concerns regarding current medication regime including effective adherence. Addressed patient/caregiver concerns regarding diagnosis and prognosis including accuracy of diagnosis, prognosis over time, impact of diagnosis. Addressed patient/caregiver concerns regarding impact of recent stressors. 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
--- OUTSIDE RECORDS SUMMARY | 2025-07-02 17:17 | XMS_ITS | Continuity of Care Document ---
Author Organization [facility] Address [address] [place] [address] Phone [phone] Care Team Providers Care Fresh Foods Clerk Name Role Phone Demetrius Mendoza NP Care Team Information Pop Singer [phone] Problems Active Problems Provider Date Osteoporosis Carlos [...] Qnty Indications Order ing Provider Date Levothyroxine Wlylzg92mwa Tablets Take 1 Tablet By Mouth Every Day In The Morning 90tabs Carlos Oliver M.D. 03/18/2023 Eqptxa42wa/ml Soln Prefill Syringe inject 60 mg under the skin every 6 months 1ml Carlos Oliver M.D. 03/16/2023 Dorzolamide HCL/Timolol Dprvbob70.3-6.8mg/ml Solution Put 1 Drop Into Each Eye Twice A Day Inder Suazo M.D. Trazodone EMJ94ab Tablets take 1 tablet by mouth at bedtime Unknown Bnpimelgu56um Capsules Take 1 -2 Capsules AT Bedtime as Needed Unknown Losartan Rvicytmzp38na Tablets Unknown Vital Signs Date Vital Result Comment 03/28/2025 10:43am BP Systolic 108 mmHg BP Diastolic 66 mmHg Heart Rate 72 /min Height 62 inches 5'2 Weight 108.50 lb BMI (Body Mass Index) 19.8 kg/m2 Results Test Acquired Date Facility Test Result H/L Range Note Creatinine 05/30/2025 [facility] Creatinine 0.68 mg/dL 0.57-1.0 0 1 eGFR 89 mL/min/1.7 3 >59 Calcium 05/30/2025 [facility] Calcium 9.1 mg/dL 8.7-10.3 Albumin 05/30/2025 [facility] Albumin 4.0 g/dL 3.8-4.8 BUN 05/30/2025 [facility] BUN 11 mg/dL 8-27 Basic Metabolic Panel (8) 04/02/2025 [facility] Glucose 91 mg/dL 70-99 BUN 9 mg/dL 8 Creatinine 0.72 mg/dL 0.57-1.0 0 eGFR 85 mL/min/1.7 3 >59 BUN/Creatinine Ratio 13 12-28 Sodium 144 mmol/L 134-144 Potassium 3.9 mmol/L 3.5-5.2 Chloride 106 mmol/L 96-106 Carbon Dioxide, Total 24 mmol/L 20-29 Calcium 04/02/2025 [facility] Calcium 9.4 mg/dL 8.7-10.3 Albumin 04/02/2025 [facility] Albumin 4.2 g/dL 3.8-4.8 PTH, Intact 04/02/2025 [facility] PTH, Intact 37 pg/mL 15-65 N-Telopeptide, Urine 04/02/2025 [facility] N-Telopeptide 182 nmolBCE Not Estab. Creatinine, Urine 71.4 mg/dL Not Estab. N-Telo/Creat. Ratio 29 nMBCE/mMCr 0-89 Interpretive Guide: See Comment: 2 Calcium 03/23/2024 [facility] Calcium 9.2 mg/dL 8.7-10.3 Creatinine 03/23/2024 [facility] Creatinine 0.79 mg/dL 0.57-1.0 0 eGFR 77 mL/min/1.7 3 >59 BUN 03/23/2024 [facility] BUN 11 mg/dL 8-27 Albumin 03/23/2024 [facility] Albumin 4.1 g/dL 3.8-4.8 PTH, Intact 09/16/2023 [facility] PTH, Intact 97 pg/mL High (15-65) Phosphorus 09/16/2023 [facility] Phosphorus 3.1 mg/dL (2.5-4.5 ) 25Oh Vitamin D 09/16/2023 [facility] 25Oh Vitamin D 32.5 NG/ML (20-50) TSH With Reflex To FT4 09/16/2023 [facility] TSH With Reflex To FT4 0.42 uIU/mL (0.4-4.2 ) Urinalysis Complete 09/16/2023 [facility] [address] Test not perform <SEE NOTE> 3 Lipid Panel 09/16/2023 [facility] Cholesterol, Total 222 mg/dL High (<200) Triglyceride 69 mg/dL (<150) HDL Chol 88 mg/dL (>39) LDL Cholesterol, Calculated 120 mg/dL (0-130) Non HDL Cholesterol (Calc) 134 mg/dL (<160) Comprehensive Metabolic Panl 09/16/2023 [facility] Glucose 111 mg/dL High (70-99) [...] (0-33) Estimated GFR Creatinine 82 ML/MIN/1.7 3M2 4 Complete Abc With Diff 09/16/2023 [facility] WBC 6.3 K/MM3 (4.0-11. 0) [...] ) Lymph # 1.2 K/MM3 (0.8-3.1 ) Chilton# 0.5 K/MM3 (0.4-0.9 ) Eo # 0.1 K/MM3 (0.0-0.4 ) Baso # 0.0 K/MM3 (0.0-0.1 ) Abs. Imm Gran 0.1 K/MM3 Neut 69.6 % (44-76) Lymph 19.2 % (15-43) Monocyte 7.3 % (4.5-10. 5) Eo 1.9 % (0-6) Baso 0.6 % (0-2) Imm Gran 1.4 % TSH With Reflex To FT4 03/16/2023 [facility] TSH With Reflex To FT4 4.67 uIU/mL High (0.4-4.2 ) Basic Metabolic Panel 03/16/2023 [facility] Glucose 85 mg/dL (70-99) BUN 12 mg/dL (8-23) Creatinine 0.7 mg/dL (0.5-1.0 ) Sodium 141 mmol/L (133-145 ) Potassium 3.7 mmol/L (3.6-5.2 ) Chloride 102 mmol/L (98-107) Bicarbonate 27 mmol/L (22-29) Anion Gap 12 (4-17) Calcium 9.3 mg/dL (8.6-10. 5) Estimated GFR Creatinine 88 ML/MIN/1.7 3M2 5 Free T4 03/16/2023 [facility] Free T4 1.25 ng/dL (0.70-1. 80) TSH With Reflex To FT4 09/17/2022 [facility] TSH With Reflex To FT4 <pending> Complete Abc With Diff 09/15/2022 [facility] WBC 7.8 K/MM3 (4.0-11. 0) [...] ) Lymph # 1.8 K/MM3 (0.8-3.1 ) Chilton# 0.5 K/MM3 (0.4-0.9 ) Eo # 0.1 K/MM3 (0.0-0.4 ) Baso # 0.0 K/MM3 (0.0-0.1 ) Abs. Imm Gran 0.0 K/MM3 Neut 68.1 % (44-76) Lymph 23.0 % (15-43) Monocyte 6.8 % (4.5-10. 5) Eo 1.3 % (0-6) Baso 0.5 % (0-2) Imm Gran 0.3 % Free T4 09/15/2022 [facility] Free T4 1.19 ng/dL (0.70-1. 80) 25Oh Vitamin D 09/15/2022 [facility] 25Oh Vitamin D 38.9 NG/ML (20-50) Comprehensive Metabolic Panl 09/15/2022 [facility] Glucose 91 mg/dL (70-99) BUN [...] (0-33) Estimated GFR Creatinine 91 ML/MIN/1.7 3M2 6 TSH With Reflex To FT4 09/15/2022 [facility] TSH With Reflex To FT4 6.38 uIU/mL High (0.4-4.2 ) Calcium 03/18/2022 [facility] Calcium 8.8 mg/dL (8.6-10. 5) Creatine, Serum 03/18/2022 [facility] Creatine, Serum 0.5 7 Calcium 03/17/2022 [facility] Calcium <pending> Creatine, Serum 03/17/2022 [facility] Creatine, Serum <pending> 1 A courtesy copy of t his report has been sent to the patient 2 The N-telopeptide an d Creatinine are used [...] measured NTx value is <or=38 nM BCE/mM [employer], or NTx has decreased >or=30% from baseline.[1] [...] Wally Taylor, et al. J Bone Min Res.11(1):M757,1995 3 Test not performed,q uantity insufficient 4 Creatinine based est imated glomerular filtration (eGFR) in adults is calculated using the National Kidney Foundation recommended 202 CKD-EPI equation. Estimates GFR from serum creatinine, age and sex. 5 Creatinine based est imated glomerular filtration (eGFR) in adults is calculated using the National Kidney Foundation recommended 202 CKD-EPI equation. Estimates GFR from serum creatinine, age and sex. 6 Creatinine based est imated glomerular filtration (eGFR) in adults is calculated using the National Kidney Foundation recommended 2020 CKD-EPI equation. Estimates GFR from serum creatinine, age and sex. 7 Reference range: 0.1 to 1.0 Unit: mg/dL (NOTE) This test was developed and its performance characteristics determined by [employer]. It has not been cleared or approved by the Food and Drug Administration. [place] [address] Medical Devices Description No Information Available Encounters [...]
--- OUTSIDE RECORDS SUMMARY | 2025-07-02 17:17 | XMS_ITS | Data Portability ---
Author Organization [place] [facility] Address On license of [facility] [place] [address] Assessment Encounter Date Assessment Date Assessment LastModified [...] after care of this patient according to [facility]'s infection prevention protocols. Time On Scene with [...] pain r/o fracture 2021 022 [facility] [address] [place] [address], [address], 2 14:32:27 Medication Orders Lidoderm 5 % topical patch [address] [id number], [address] [place], [address], 13:26:25 Patient TargetsNo targets recorded. Patient Instructions Encounter Date Encounter Id Patient Instructions Last Modified By Organization Details Last Modified Time 11/04/2021 [id number] In order to meet our goal of providing quality urgent care in your home, your [facility] provider has ordered the following exam to be completed. The company we have partnered with that will be completing the exam listed above is: [employer] While you wait comfortably at home, you can expect a [facility] technologist to call you 30-45 minutes prior to arrival. Should you need to make special scheduling arrangements please call the number listed above and ask to speak with [facility] dispatcher. For your convenience, you can also request your technologist s Estimated Time of Arrival (ETA) by calling the number listed above. Once requested, a [facility] dispatcher will call you back to let you know what time frame to expect the technologist to arrive within. Once your x-ray is completed, a radiologist will evaluate the test and interpret the results. Once the [facility] from the reading radiologist a [facility] provider will call with the results. [email or web address] Not available 11/09/2021 08:31:32 Reason for Referral None Reported. Procedures Surgical History Date Name Laterality Status Provider Name and Address Organization Details Recorded Time oophorectomy completed Jadyn Chawla NP [address] [place], [address], [place] [facility] 11/04/2021 12:45:22 tonsillectomy completed Jadyn Chawla NP [address], [place], [address], [place] [facility] 11/04/2021 12:45:34 hip pin for fixation of epiphysis completed Jadyn Chawla NP [address], [place], [address], [place] [facility] 11/04/2021 12:45:46 Imaging Results None recorded. Procedure Notes None recorded. Medical Equipment None Reported. Allergies Allergen ID Allergen Name Allergen Category Reaction Reaction Severity Criticality Documentation Date Start Date Code Code System Note Provider Name and Address Organization Details Recorded Time 779226 Keflex medicatio n Not available Not available Not available 11/04/2021 62724 7 RxNorm Jadyn Chawla, DYE LINE OPERATOR [address], [place], [address], [place] [facility] 12:39:43 875771 morphine medicatio n Not available Not available Not available 11/04/2021 7052 RxNorm Jadyn Chawla NP [address] [place], [address], [place] [facility] 23:00:50 Medications [...] in Arterial blood by Pulse oximetry Systolic And Diastolic Provider Name and Address Organization Details Last Updated DateTime 2 60 /min 90 % 90 % 99.1 [degF] 16 /min 94 % 94 % 128/78 mm[Hg] Not Available [facility] 12:50:51 Social History Question Answer Notes LastModified by Organizat ion Details LastModified Time Tobacco Smoking Status Former Smoker Jadyn Chawla NP [address], [place], [address], [place] [facility] 11/04/2021 12:44:48 Within The Past 12 Months, Have You [...] To Resources? None Information not available 11/04/2021 How Many Years Have You Smoked Tobacco? 2 Information not available 11/04/2021 Sex: Unknown Functional Status Question Answer Note LastModified by Organizat ion Details LastModified Time Do you use any illicit or recreational drugs? No Information not available 11/04/2021 Do you or have you ever used any other forms of tobacco or nicotine? No Information not available 11/04/2021 What is your level of alcohol consumption? Occasional Information not available 11/04/2021 Mental Status None recorded. Family History Relationship Description Onset Age of this Age Resolved Age Notes LastModified by Organization Details LastModified Time Mother Malignant neoplasm of lung lnovia Not available 2021 12:41:20 Medical History Condition Response Hypothyroidism Y Gynecological HistoryNo gynecological history recorded. Obstetrics History GPAL:G 0 P 0 0 0 0 Past Encounters Encounter ID Performer Location Encounter Start Date Encounter Closed Date Diagnosis/Indication Diagnosis SNOMED-CT Code Diagnosis ICD10 Code Diagnosis IMO Codes Diagnosis Note [id number] Jadyn Chawla NP [facility] [address], [place] [address] 11/04/2021 12:33:11 11/16/2021 13:08:33 Contusion of rib 428268123 S20.20XA Health Concerns Section Related Observation LastModified by Organization Detai ls LastModified Time None Recorded Concern Status LastModified by Organization Details LastModified Time None Recorded Advance Directives Directive None Recorded Payers Insurance Date Sequence Insurance Name Policy Number Policy Campoverde Covered Member ID Campoverde Member ID Guarantor Name 11/04/2021 2 [place] [facility] Anna Marie Gonzalez [id number] Anna Marie Gonzalez 11/04/2021 1 *SELF PAY* Anna Marie Gonzalez [id number] Anna Marie Gonzalez 11/06/2021 1 MED[place] B-[place] [facility] Anna Marie Gonzalez [id number] Anna Marie Gonzalez 11/04/2021 1 [place] [facility] Anna Marie Gonzalez [id number] Anna Marie Gonzalez 11/06/[address] [facility] (MEDICARE REPLACEMENT/A DVANTAGE - HMO) Anna Marie Gonzalez [id number] Anna Marie Gonzalez Notes Date Note Type [...] has been helpful. Jadyn Chawla NP [address] [place], [address], [place] [facility] 11/09/2021 08:31:47 OBGyn Episode No OBEpisode recorded.
--- OUTSIDE RECORDS SUMMARY | 2025-07-02 17:17 | XMS_ITS | Patient Health Record ---
Author Organization [facility] Address [address] [place] [address] Care Team Providers Care Roastmaster Name Role Phone Christopher Azevedo Primary Care Provider Dominic Wilcox Unavailable [phone] Sary Chauhan Unavailable [phone] Allergies Allergen (clinical drug ingredient) Drug/Non Drug Allergy documented on EMR Reaction Allergy Type Onset Date Status Keflex rash Drug Allergy Active Medicinal cephalosporin and acting as antibacterial agent (FN) Cephalosporins Unknown Drug Allergy Active Reason For Referral No Information Medications Medication SIG (Take, Route, Frequency, Duration) Notes Start Date End Date Status Calcium + D3 600 mg Active Reclast Active Losartan Potassium 25 MG 1 tablet Orally Once a day Active Trazamine 50 mg 1 per day Not-Taking traZODone HCl Not-Ta shira traZODone HCl Active Temazepam 15 MG 1 capsule at bedtime as needed Orally Once a day Active Levothyroxine Sodium 50 MCG 1 tablet in the morning on an empty stomach Orally Once a day; Duration: 30 day(s) Active Dorzolamide HCl 2 % 1 drop into affected eye Ophthalmic Three times a day Active Physical Therapy . . . 2-3x/week; Duration: 3-4 weeks 05/08/2024 Not-Taking Prolia Not-Taking Voltaren 1 % as directed Externally [...] W/U Status Risk Notes Problem Plantar wart (04737644) Plantar wart (B07.0) Active confirmed Problem Arthritis of right ankle (5647521593074 106) Arthritis of right ankle (M19.071) Active confirmed Vital Signs Height 5 ft 2 in in 07/02/2025 Weight 107 lbs 07/02/2025 BMI 19.57 kg/m2 07/02/2025 Procedures Procedure Date Ordered Date Performed Result Body Sit e 03423-Jmei Destruction, 1-07/02/2025 N/A 04872-Vowbszeb Plate 07/02/2025 N/A Encounters Encounter Location Date Provider Diagnosis [facility] [address] [address] 07/02/2025 Sary Chauhan Right foot pain M79.671 ; Plantar wart B07.0 and Ingrown nail L60.0 Assessments Encounter Date Diagnosis (ICD Code) Assessment Notes Treatment Notes Treatment Clinical Notes Section Notes 07/02/2025 Right foot pain (ICD-10 - M79.671) 07/02/2025 Plantar wart (ICD-10 - B07.0) 07/02/2025 Ingrown nail (ICD-10 - L60.0) Plan Of Treatment Pending Test Test Name Order Date 35572-Rhvd Destruction, 1-07/02/2025 88870-Kosqmolv Plate 07/02/2025 32672-FAS 01/03/2024 41104- Debride <25 sq cm 02/03/2024 30403 I&D ABSCESS- SIMPLE,SINGLE 024 X ray : Ankle, right 3V 05/08/2024 Insurance Providers Payer Name Payer Address Payer Phone Subscriber Number Group Number Insured Name Patient Relationship to Insured Coverage Start Date Coverage End Date [facility] Medicare-309 [address] [address] [place] [address] [id number] Anna Marie Gonzalez Self - patient is the insured Medical (General) History Medical History History ICD Code osteoarthritis Broken bones Cataracts Glaucoma Headaches/Migraines Osteoporosis thyroid Measles Chicken pox Joint implants/screws Surgical History Surgery Date(Month/Year) right hip replacement 02/2016 left hip replacement 06/2016 toenail surgery 12/2018 ? 1953 infusion, reclast, once a year 05/2025
== END 2025-07-02 15:54 | disposition home or self-care (01) ==
LOC: HO.HOP 15:53
PROVIDERS: PCP Internal Medicine; Visit Provider Clinical Nurse Specialist Psychiatric/Mental Health
DX: F41.1 Generalized anxiety disorder (principal); F51.01 Primary insomnia
CPT/HCPCS: 99214

== ENCOUNTER → 2025-07-02 15:53 | Outpatient (BNVA) | payer MEDICARE, MEDICAID, SELFPAY | PROVIDERS: PCP Internal Medicine; Visit Provider Clinical Nurse Specialist Psychiatric/Mental Health | DX: F41.1 Generalized anxiety disorder (principal); F51.01 Primary insomnia | CPT/HCPCS: 99212 ==